=== PATIENT | male | born 1930 | race Caucasian/White ===

== ENCOUNTER 2017-03-05 11:20 | Inpatient (IN) | payer MEDICARE ==
[~2017-03-05] VITALS: Ht 172.7 cm; Wt 71.8 kg
[2017-03-05] VITALS (11 sets, daily range): BP systolic 94–133; BP diastolic 65–74; PULSE 85–110; RESP 20–38; TEMP 97.4–98.1; O2SAT 91–98
[~2017-03-05 11:20] MED LIST: ASPI81 PO; BENA5TAB PO
[2017-03-05] MEDS ORDERED: RESP: ALBUTEROL 2.5 MG/IPRATROPIUM 0.5 MG NEB (SCH) NEB ONE (11:30)
[2017-03-05] MEDS ORDERED: methylPREDNISolone SOD SUCC 125 MG/2 ML VIAL IV PUSH ONE (11:30)
[2017-03-05] MEDS ORDERED: SODIUM CHLORIDE 0.9% FLUSH 10 ML FLUSH IVF PRN (11:30)
--- NOTE | 2017-03-05 11:43 | PD ---
HPI Chief Complaint: Respiratory Distress Time Seen by Provider: 11:22 Travel History International Travel<30 days: No Contact w/Intl Traveler<30days: No Traveled to known affect area: No History of Present Illness HPI This is a 87-year-old male patient with a past medical history of COPD and was just diagnosed last year per resents with a complaint of shortness of breath of 2 days' duration. Patient notes a dry cough and denies fever and chills. He states his states his chest felt tight but denies nausea vomiting sweating and lightheadedness dizziness. PFSH Past Medical History AAA: Yes Heart Rhythm Problems: No Cardiac Catheterization: No Cardiovascular Problems: No High Cholesterol: No Congestive Heart Failure: No Diabetes: No Diminished Hearing: No Hypertension: Yes Tetanus Vaccination: Unknown Influenza Vaccination: Yes Past Surgical History Coronary Artery Bypass Graft: No Other Surgery: Yes (Bilateral hernia repair 15 years ago. Right leg surgery.) Social History Alcohol Use: No Tobacco Use: No Substance Use: No Allergies-Medications (Allergen,Severity, Reaction): Coded Allergies: No Known Allergies (Verified , 03/05/17) Reported Meds & Prescriptions Reported Meds & Active Scripts Active Reported Benazepril (Benazepril HCl) 5 Mg Tab 5 Mg PO DAILY Aspirin 81 Mg Chew 81 Mg CHEW DAILY Review of Systems ROS Limitations: Clinical Condition General / Constitutional: No: Fever, Chills, Weight Gain, Weight Loss, Other Eyes: No: Diploplia, Blurred Vision, Photophobia, Drainage, Redness, Foreign Body Sensation, Pain, Tearing, Blind Spots, Visual changes, Blindness, Other HENT: No: Headaches, Vertigo, Lightheadedness, Sore Throat, Rhinitis, Rhinorrhea, Congestion, Nosebleed, Neck Stiffness, Neck Pain, Masses, Gingival Bleeding, Dental Difficulties, Ear Discharge, Earache, Other Cardiovascular: Positive: Other (chest tightness), No: Chest Pain or Discomfort, Palpitations, Irregular Rhythm, Tachycardia, Diaphoresis, Syncope, Dyspnea on exertion, Varicosities, Edema, Cyanosis, Varicosities, Phlebitis, Claudication Respiratory: Positive: Cough, Shortness of Breath, No: Wheezing, Sneezing, Orthopnea, Hemoptysis, Stridor, Night Sweats, Pleuritic Pain, Other Gastrointestinal: No: Nausea, Vomiting, Diarrhea, Abdominal Pain, Hematemesis, Hematochezia, Constipation, Changes in Bowel Habits, Indigestion, Dysphagia, Loss of Appetite, Other Genitourinary: No: Urgency, Frequency, Dysuria, Nocturia, Hematuria, Decreased Urinary Output, Oliguria, Hesitancy, Dribbling, Incontinence, Pelvic Pain, Flank Pain, Dyspareunia, Discharge, Dysmenorrhea, Menorrhagia, Metorrhagia, Vaginal Bleeding, Other Musculoskeletal: No: Myalgias, Arthralgias, Limited ROM, Weakness, Cramping, Edema, Pain, Atrophy, Other Skin: No Rash, No Itching, No Dryness, No Lumps, No Hives, No Change in Pigmentation, No Change in nails, No Alopecia, No Lesions, No Breast Lumps, No Breast Tenderness, No Breast Swelling, No Other Neurologic: No: Weakness, Dizziness, Syncope, Focal Abnormalities, Coordination Problem, Tremor, Ataxia, Headache, Change in Mentation, Slurred Speech, Paresthesia, Incontinence, Seizures, Sensory Disturbance, Other Psychiatric: No: Anxiety, Depression, Suicidal Ideations, Disorder of Thought, Mood Disorder, Substance Abuse, Homicidal Ideation, Other Endocrine: No: Heat Intolerance, Cold Intolerance, Polyuria, Polydipsia, Other Hematologic/Lymphatic: No: Easy Bruising, Lymph Node Enlargement, Other Physical Exam Exam Limitations: Clinical Condition Narrative GENERAL: Older male patient who presents in severe respiratory distress SKIN: Focused skin assessment warm/dry.no lesions no cyanosis no erythema HEAD: Atraumatic. Normocephalic. EYES: Pupils equal and round and reactive . No scleral icterus. No injection or drainage. ENT: No nasal bleeding or discharge. Mucous membranes pink and moist. NECK: Trachea midline. No JVD. CARDIOVASCULAR: S1-S2 appreciated. Hyperdynamic precordium No murmur appreciated. Pulses normal throughout. RESPIRATORY issue using accessory muscles of respiration active inspiratory and expiratory wheezing in all lung archuleta breath sounds throughout GASTROINTESTINAL: Abdomen soft, non-tender, nondistended. Hepatic and splenic margins not palpable. Bowel sounds normal. No peritoneal signs. MUSCULOSKELETAL: No obvious deformities. No clubbing. No cyanosis. No edema. NEUROLOGICAL: Awake and alert and oriented 3.. No obvious cranial nerve deficits. Motor and sensory exam grossly within normal limits. Normal speech. No meningeal signs. PSYCHIATRIC: Patient anxious insight and judgment normal. No suicidal or homicidal ideation. Data Data Last Documented VS Vital Signs Date Time Temp Pulse Resp B/P Pulse Ox O2 Delivery O2 Flow Rate FiO2 03/05/17 14:19 96 35 03/05/17 13:58 88 102/70 03/05/17 13:16 BiPAP 03/05/17 11:29 38 03/05/17 11:26 98.1 Orders Resp Bipap / Cpap Non Invas Vt (03/05/17 ) Albuterol-Ipratropium Neb (Duoneb Neb) (03/05/17 11:30) Methylprednisolone So Succ Inj (Solumedr (03/05/17 11:30) Electrocardiogram (03/05/17 11:24) Basic Metabolic Panel (Bmp) (03/05/17 11:24) Ckmb (Isoenzyme) Profile (03/05/17 11:24) Complete Blood Count With Diff (03/05/17 11:24) Magnesium (Mg) (03/05/17 11:24) Prothrombin Time / Inr (Pt) (03/05/17 11:24) Act Partial Throm Time (Ptt) (03/05/17 11:24) Troponin I (03/05/17 11:24) Chest, Single Ap (03/05/17 11:24) Ecg Monitoring (03/05/17 11:24) Bilateral Bp Monitoring (03/05/17 11:24) Iv Access Insert/Monitor (03/05/17 11:24) Oximetry (03/05/17 11:24) Oxygen Administration (03/05/17 11:24) Sodium Chloride 0.9% Flush (Ns Flush) (03/05/17 11:30) Sodium Chlor 0.9% 250 Ml Inj (Ns 250 Ml (03/05/17 13:30) Ceftriaxone Inj (Rocephin Inj) (03/05/17 13:30) Azithromycin Inj (Zithromax Inj) (03/05/17 13:30) Aspirin (Aspirin) (03/05/17 13:30) Electrocardiogram (03/05/17 12:18) Admit To Inpatient (03/05/17 ) Vital Signs (Adult) Q4H (03/05/17 15:57) Activity Oob With Assistance (03/05/17 15:57) Diet Heart Healthy (03/05/17 Dinner) Sodium Chloride 0.9% Flush (Ns Flush) (03/05/17 16:00) Sodium Chloride 0.9% Flush (Ns Flush) (03/05/17 21:00) Acetaminophen (Tylenol) (03/05/17 16:00) Ondansetron Inj (Zofran Inj) (03/05/17 16:00) Basic Metabolic Panel (Bmp) (03/06/17 06:00) Complete Blood Count With Diff (03/06/17 06:00) Resp Oxygen Yaya C Titrat 1-4 L (03/05/17 ) Pt Request For Service (03/05/17 15:57) Heparin Inj (Heparin Inj) (03/05/17 17:00) Naloxone Inj (Narcan Inj) (03/05/17 16:00) Docusate Sodium-Senna (Nirali-Colace) (03/05/17 21:00) Magnesium Hydroxide Liq (Milk Of Magnesi (03/05/17 16:00) Sennosides (Senokot) (03/05/17 16:00) Bisacodyl Supp (Dulcolax Supp) (03/05/17 16:00) Lactulose Liq (Lactulose Liq) (03/05/17 16:00) Inpatient Certification (03/05/17 ) Albuterol-Ipratropium Neb (Duoneb Neb) (03/05/17 16:00) Albuterol-Ipratropium Neb (Duoneb Neb) (03/05/17 16:00) Prednisone (Deltasone) (03/05/17 18:00) Levofloxacin (Levaquin) (03/06/17 09:00) Arterial Blood Gas (Abg) (03/05/17 ) Admit Order (Ed Use Only) (03/05/17 16:12) Labs Laboratory Tests Test 03/05/17 03/05/17 11:40 16:08 White Blood Count 12.1 TH/MM3 Red Blood Count 4.87 MIL/MM3 Hemoglobin 14.6 GM/DL Hematocrit 44.0 % Mean Corpuscular Volume 90.4 FL Mean Corpuscular Hemoglobin 30.1 PG Mean Corpuscular Hemoglobin 33.3 % Concent Red Cell Distribution Width 15.7 % Platelet Count 280 TH/MM3 Mean Platelet Volume 7.6 FL Neutrophils (%) (Auto) 80.9 % Lymphocytes (%) (Auto) 8.5 % Monocytes (%) (Auto) 8.8 % Eosinophils (%) (Auto) 1.4 % Basophils (%) (Auto) 0.4 % Neutrophils # (Auto) 9.8 TH/MM3 Lymphocytes # (Auto) 1.0 TH/MM3 Monocytes # (Auto) 1.1 TH/MM3 Eosinophils # (Auto) 0.2 TH/MM3 Basophils # (Auto) 0.0 TH/MM3 CBC Comment AUTO DIFF Differential Total Cells 100 Counted Neutrophils % (Manual) 79 % Band Neutrophils % 6 % Lymphocytes % 8 % Monocytes % 5 % Neutrophils # (Manual) 10.5 TH/MM3 Myelocytes 2 % Nucleated Red Blood Cells 1 /100 WBC Differential Comment FINAL DIFF MANUAL Toxic Vacuolation PRESENT Platelet Estimate NORMAL Platelet Morphology Comment NORMAL Ovalocytes 1+ Prothrombin Time 11.6 SEC Prothromb Time International 1.0 RATIO Ratio Activated Partial 25.7 SEC Thromboplast Time Sodium Level 131 MEQ/L Potassium Level 5.2 MEQ/L Chloride Level 100 MEQ/L Carbon Dioxide Level 21.0 MEQ/L Anion Gap 10 MEQ/L Blood Urea Nitrogen 35 MG/DL Creatinine 1.75 MG/DL Estimat Glomerular Filtration 37 ML/MIN Rate Random Glucose 123 MG/DL Calcium Level 8.9 MG/DL Magnesium Level 2.5 MG/DL Total Creatine Kinase 79 U/L Troponin I 0.21 NG/ML Blood Gas Puncture Site RT RADIAL Blood Gas Patient Temperature 98.6 Blood Gas HCO3 23 mmol/L Blood Gas Base Excess -1.0 mmol/L Blood Gas Oxygen Saturation 91 % Arterial Blood pH 7.45 Arterial Blood Partial 33 mmHg Pressure CO2 Arterial Blood Partial 67 mmHG Pressure O2 Arterial Blood Oxygen Content 18.6 Vol % Arterial Blood 2.1 % Carboxyhemoglobin Arterial Blood Methemoglobin 0.7 % Blood Gas Hemoglobin 14.6 G/DL Oxygen Delivery Device BIPAP Blood Gas Ventilator Setting IPAP 12/EPAP 5 Blood Gas Inspired Oxygen 35 % [facility] Medical Decision Making Medical Screen Exam Complete: Yes Emergency Medical Condition: Yes Medical Record Reviewed: Yes Interpretation(s) EKG right bundle branch block left anterior fascicular block occasional PVC no acute ST segment elevation Chest x-ray shows hyperinflation and bilateral interstitial changes White cell count 21,000 ] Troponin increased to 0.21 however creatinine is also increased to 1.7 range ABG on 35% oxygen and BiPAP pH 7.45 PCO2 32.7 oxygen saturation 67.2 sodium bicarbonate 22.5 oxygen saturation duration 95-96% Differential Diagnosis Differential diagnoses acute respiratory distress COPD exacerbation hypoxemia acute kidney injury causing the elevation in troponin Narrative Course Critical care course this is a 87-year-old male patient with a history of COPD presented in extremis in triage noted to have a oxygen saturation in the 60s he was brought back immediately to room 27 where nonrebreather was placed patient quickly converted to BiPAP and was given a DuoNeb and Solu-Medrol which he responded to well magnesium level was normal EKG showed no ischemic changes however there was right bundle branch block and left anterior fascicular block occasional PVCs but no ST changes troponin elevated 0.21 but creatinine also elevated at 1.7 believes elevated troponin may be related to acute kidney injury Case discussed with Dr. Santiago the patient's intrusion analyst and the plan is to place patient on the telemetry floor and they will be consulted case also discussed with Dr. Tae swift the hospitalist accepted the patient onto the telemetry floor. She is currently on BiPAP ABGs to be performed and oxygen saturation is within normal limits she was awake and alert . Physician Communication Physician Communication Dr. tae Swift Diagnosis Primary Impression: Acute respiratory distress Additional Impressions: COPD exacerbation Leukocytosis leukocytosis Admitting Information Admitting Physician Requests: Admit Condition: Stable Matthew Medina MD Mar 05, 2017 11:43
[2017-03-05 12:18] LABS: AUTOMATED NEUTROPHIL # 9.8 TH/MM3 (1.8-7.7); BASOPHIL % 0.4 % (0.0-2.0); EOSINOPHIL # 0.2 TH/MM3 (0-0.4); EOSINOPHIL % 1.4 % (0.0-4.0); LYMPH % 8.5 % (9.0-44.0); MEAN CELL VOLUME 90.4 FL (80.0-100.0); MEAN CORPUSCULAR HEMOGLOBIN 30.1 PG (27.0-34.0); MEAN CORPUSCULAR HGB CONC 33.3 % (32.0-36.0); MONO % 8.8 % (0.0-8.0); NEUT % 80.9 % (16.0-70.0); PLATELET COUNT 280 TH/MM3 (150-450); RED BLOOD COUNT 4.87 MIL/MM3 (4.50-5.90); RED CELL DISTRIBUTION WIDTH 15.7 % (11.6-17.2); WHITE BLOOD COUNT 12.1 TH/MM3 (4.0-11.0)
[2017-03-05 12:21] LABS: HEMO FLAGS AUTO DIFF
[2017-03-05 12:33] LABS: APTT (PATIENT) 25.7 SEC (24.3-30.1); PROTHROMBIN TIME - PATIENT 11.6 SEC (9.8-11.6)
[2017-03-05 12:38] LABS: MAGNESIUM 2.5 MG/DL (1.5-2.5); POTASSIUM 5.2 MEQ/L (3.5-5.1)
--- NOTE | 2017-03-05 12:49 | RADRPT ---
EXAM DATE/TIME: 03/05/2017 11:40 [place] COMPARISON: CHEST PA & LAT, August 13, 2011, 14:10. INDICATIONS : Dyspnea. MEDICAL HISTORY : Chronic obstructive pulmonary disease. SURGICAL HISTORY : None. ENCOUNTER: Initial ACUITY: 1 day PAIN SCORE: 0/10 LOCATION: Bilateral chest FINDINGS: The exam demonstrates a band COPD changes. There are extensive emphysematous changes in the lung apic es. There is interstitial fibrotic change in both lower lobes. The amount of interstitial prominence in the lung bases appears increased when compared to previous dated 08/13/11. The heart is normal in size. There is no pleural effusion. The mediastinal contours are within normal limits. The bony struc tures demonstrate a probable old fracture of the distal left clavicle but are otherwise intact. CONCLUSION: 1. Severe COPD changes and interstitial fibrotic change. Kevon Mahoney MD on March 05, 2017 at 12:46 Board Certified Radiologist. This report was verified electronically.
[2017-03-05 12:56] LABS: BANDS 6 % (0-6); CORRECTED NUCLEATED RBC 1 /100 WBC (0-0); MYELOCYTES 2 % (0-0); NEUTROPHIL # MANUAL DIFF 10.5 TH/MM3 (1.8-7.7); POLYS (SEG NEUTROPHILS) 79 % (16-70); WBC DIFF SAMPLE 100
[2017-03-05 12:57] LABS: OVALOCYTES 1+ (NORMAL); TOXIC VACUOLATION PRESENT (NONE SEEN)
[2017-03-05 12:58] LABS: PLATELET ESTIMATE SMEAR NORMAL (NORMAL); PLATELET MORPHOLOGY NORMAL (NORMAL); SCAN/DIFF FINAL DIFF MANUAL
[2017-03-05] MEDS ORDERED: ASPI81CH CHEW (13:16)
[2017-03-05] MEDS ORDERED: BENA5TAB PO (13:16)
[2017-03-05] MEDS ORDERED: SODIUM CHLOR 0.9% 250 ML INJ 250 ML IV ONE (13:30)
[2017-03-05] MEDS ORDERED: AZITHROMYCIN INJ 500 MG in SODIUM CHLOR 0.9% 250 ML INJ 250 ML IV ONE (13:30)
[2017-03-05] MEDS ORDERED: ASPIRIN 325 MG TAB PO ONE (13:30)
[2017-03-05] MEDS ORDERED: cefTRIAXone INJ 1,000 MG in SODIUM CHLORIDE 0.9% INJ 100 ML IV ONE (13:30)
[2017-03-05] MEDS ORDERED: SODIUM CHLORIDE 0.9% FLUSH 10 ML FLUSH IV FLUSH PRN (16:00)
[2017-03-05] MEDS ORDERED: ONDANSETRON HCL 4 MG/2 ML VIAL IVP PRN (16:00)
[2017-03-05] MEDS ORDERED: NALOXONE HCL 0.4 MG/ML AMP IV PRN (16:00)
[2017-03-05] MEDS ORDERED: RESP: ALBUTEROL 2.5 MG/IPRATROPIUM 0.5 MG NEB (PRN) NEB (16:00)
[2017-03-05] MEDS ORDERED: SENNOSIDES 8.6 MG TAB PO PRN (16:00)
[2017-03-05] MEDS ORDERED: LACTULOSE SYRUP 20 GM/30 ML CUP PO PRN (16:00)
[2017-03-05] MEDS ORDERED: ACETAMINOPHEN 325 MG TAB PO PRN (16:00)
[2017-03-05] MEDS ORDERED: BISACODYL 10 MG SUPP RECTAL PRN (16:00)
[2017-03-05] MEDS ORDERED: MAGNESIUM HYDROXIDE SUSP 30 ML CUP PO PRN (16:00)
--- NOTE | 2017-03-05 16:03 | HHI.HP ---
HPI Service [facility] Primary Care Physician Unknown Admission Diagnosis Diagnoses: Chief Complaint: Shortness of breath Travel History International Travel<30 Days: No Contact w/Intl Traveler <30 Da: No Traveled to Known Affected Are: No History of Present Illness Mr. Jackman is a pleasant 87-year-old male with a history of COPD who presents to the emergency department due to shortness of breath that started 2 days ago. He reports some chest tightness. Denies nausea vomiting, lightheadedness or dizziness. He had dry cough without any fever, chills. Denies any changes in bowel or bladder habits. No dysuria, hematuria. At the time of this interview, patient was on BiPAP started in the ED. His ABG showed 7.45/33/67 on 35% O2 indicating patient's problem with oxygenation and not so much problem with ventilation. We stopped BiPAP during this interview and started patient on O2 via nasal cannula. He is requiring 4L of O2 to maintain O2 sat 88-90%. Patient feels much more comfortable with Nasal Cannula. Review of Systems Except as stated in HPI: all other systems reviewed are Neg Past Family Social History Past Medical History COPD, HTN Past Surgical History Bilateral hernia repair, right leg surgery. Reported Medications Benazepril (Benazepril HCl) 5 Mg Tab 5 Mg PO DAILY Aspirin 81 Mg Chew 81 Mg CHEW DAILY Allergies: Coded Allergies: No Known Allergies (Verified , 03/05/17) Family History No family history of Alzheimer's or Parkinson's. Social History Denies using tobacco, alcohol, illicit drugs. Physical Exam Vital Signs Vital Signs Date Time Temp Pulse Resp B/P Pulse Ox O2 Delivery O2 Flow Rate FiO2 03/05/17 14:19 96 35 03/05/17 13:58 88 102/70 03/05/17 13:16 85 94/65 95 BiPAP 40 03/05/17 11:29 38 97 BiPAP 45 03/05/17 11:29 98 03/05/17 11:29 98 BiPAP 03/05/17 11:26 98.1 88 38 124/71 97 03/05/17 11:25 97 45 03/05/17 11:25 97 BiPAP 45 Physical Exam GENERAL: This is a well-nourished, well-developed patient, in no apparent distress. SKIN: No rashes, ecchymoses or lesions. Warm and dry. HEAD: Atraumatic. Normocephalic. No temporal or scalp tenderness. EYES: Pupils equal round and reactive. No injection or drainage. ENT: Nose without bleeding, purulent drainage or septal hematoma. Airway patent. NECK: Trachea midline. No lymphadenopathy. Supple, nontender, no meningeal signs. CARDIOVASCULAR: Regular rate and rhythm without murmurs, gallops, or rubs. No JVD. RESPIRATORY: Moderate air entry, diffuse velcro like crackles in the lower lung archuleta. GASTROINTESTINAL: Abdomen soft, non-tender, nondistended. No guarding. MUSCULOSKELETAL: Extremities without clubbing, cyanosis, or edema. NEUROLOGICAL: Awake and alert. Cranial nerves II through XII intact. No focal neurological deficits. Normal speech. Laboratory Laboratory Tests Test 03/05/17 11:40 White Blood Count 12.1 Red Blood Count 4.87 Hemoglobin 14.6 Hematocrit 44.0 Mean Corpuscular Volume 90.4 Mean Corpuscular Hemoglobin 30.1 Mean Corpuscular Hemoglobin 33.3 Concent Red Cell Distribution Width 15.7 Platelet Count 280 Mean Platelet Volume 7.6 Neutrophils (%) (Auto) 80.9 Lymphocytes (%) (Auto) 8.5 Monocytes (%) (Auto) 8.8 Eosinophils (%) (Auto) 1.4 Basophils (%) (Auto) 0.4 Neutrophils # (Auto) 9.8 Lymphocytes # (Auto) 1.0 Monocytes # (Auto) 1.1 Eosinophils # (Auto) 0.2 Basophils # (Auto) 0.0 CBC Comment AUTO DIFF Differential Total Cells 100 Counted Neutrophils % (Manual) 79 Band Neutrophils % 6 Lymphocytes % 8 Monocytes % 5 Neutrophils # (Manual) 10.5 Myelocytes 2 Nucleated Red Blood Cells 1 Differential Comment FINAL DIFF MANUAL Toxic Vacuolation PRESENT Platelet Estimate NORMAL Platelet Morphology Comment NORMAL Ovalocytes 1+ Prothrombin Time 11.6 Prothromb Time International 1.0 Ratio Activated Partial 25.7 Thromboplast Time Sodium Level 131 Potassium Level 5.2 Chloride Level 100 Carbon Dioxide Level 21.0 Anion Gap 10 Blood Urea Nitrogen 35 Creatinine 1.75 Estimat Glomerular Filtration 37 Rate Random Glucose 123 Calcium Level 8.9 Magnesium Level 2.5 Total Creatine Kinase 79 Troponin I 0.21 Result Diagram: 03/05/17 1140 03/05/17 1140 Imaging Last Impressions Chest X-Ray 03/05/17 1124 Signed Impressions: Service Date/Time: Sunday, March 05, 2017 11:40 - CONCLUSION: 1. Severe COPD changes and interstitial fibrotic change. Kevon Mahoney MD Assessment and Plan Problem List: (1) COPD exacerbation ICD Code: J44.1 Status: Acute (2) Pulmonary interstitial fibrosis ICD Code: J84.10 Status: Acute (3) Hypertension ICD Code: I10 Status: Acute Assessment and Plan Mr. Jackman is a pleasant 87 year old male with a history of COPD who presents to the ED with shortness of breath that started two days prior to this admission. Patient reports dry cough and no fever, chills. - Acute respiratory failure - hypoxia. - COPD exacerbation - Pulmonary interstitial fibrosis - CXR reviewed by me on 03/05/2017 - shows bilateral lower lung pulmonary fibrosis. - O2 sat is in the low 80s on 2L of O2, measured at bedside. - Continue O2 via NC to keep O2 sat > 88%. Currently patient is requiring 4L - Continue DuoNeb scheduled and PRN - Continue Prednisone 20mg TID. - Continue Levofloxacin 750mg [id number]. Patient received Azithromycin and Ceftriaxone in the ED. - Hypertension - Patient takes Benazepril at home. Will hold of using BETY inhibitor for now. - Acute kidney injury - Mild hyperkalemia K 5.2 - Mild hyponatremia Na 131 - Possibly pre-renal. Will start patient on gentle hydration with NS. - BMP, CBC in the AM. Full code. Heparin SQ. Physician Certification 2 Midnight Certification Type: Admission for Inpatient Services Order for Inpatient Services The services are ordered in accordance with Medicare regulations or non- Medicare payer requirements, as applicable. In the case of services not specified as inpatient-only, they are appropriately provided as inpatient services in accordance with the 2-midnight benchmark. Estimated LOS (days): 2 days is the estimated time the patient will need to remain in the hospital, assuming treatment plan goals are met and no additional complications. Post-Hospital Plan: Home Karma Swift DO Mar 05, 2017 16:03
--- NOTE | 2017-03-05 16:12 | EKG ---
Date Performed: 03/05/2017 Time Performed: 12:18:11 PTAGE: 87 years EKG: Sinus rhythm PACS RIGHT BUNDLE BRANCH BLOCK LEFT POSTERIOR FASCICULAR BLOCK ABNORMAL ECG PREVIOUS TRACING : 03/05/2017 11.30 Compared to prior tracing no significant change DOCTOR: Roselyn Raymond Interpretating Date/Time 03/05/2017 16:11:20
--- NOTE | 2017-03-05 16:16 | EKG ---
Date Performed: 03/05/2017 Time Performed: 11:30:17 PTAGE: 87 years EKG: Sinus rhythm WITH FREQUENT SUPRAVENTRICULAR PREMATURE COMPLEXES RIGHT BUNDLE BRANCH BLOCK LEFT POSTERIOR FASCICUL AR BLOCK ABNORMAL ECG Compared to prior tracing no significant change DOCTOR: Roselyn Raymond Interpretating Date/Time 03/05/2017 16:15:00
[2017-03-05 16:19] LABS: BLOOD GAS CARBOXYHEMOGLOBIN 2.1 % (0-4); BLOOD GAS HCO3 23 mmol/L (22-26); BLOOD GAS METHEMOGLOBIN 0.7 % (0-2); BLOOD GAS O2 HGB SATURATION 91 % (90-100); BLOOD GAS OXYGEN CONTENT 18.6 Vol % (12.0-20.0); BLOOD GAS PCO2 33 mmHg (38-42); BLOOD GAS PO2 67 mmHG (61-120); BLOOD GAS TOTAL HGB 14.6 G/DL (12.0-16.0); CRITICAL VALUE NO; DRAW SITE RT RADIAL; FIO2 35 %; NUMBER OF ARTERIAL PUNCTURES 1; OXYGEN DEVICE BIPAP; STAT YES; TEMP CORR TO 98.6; ULNAR PULSE PRESENT; VENT SETTINGS IPAP 12/EPAP 5
[2017-03-05] MEDS: RESP: ALBUTEROL 2.5 MG/IPRATROPIUM 0.5 MG NEB (SCH) NEB ×2 (16:26→19:00)
[2017-03-05] MEDS: HEPARIN SODIUM - SQ 10,000 UNITS/ML VIAL SQ SCH (18:09)
[2017-03-05] MEDS: predniSONE 20 MG TAB PO SCH (18:09)
[2017-03-05] MEDS: DOCUSATE SODIUM 50 MG/SENNA 8.6 MG TAB PO SCH (20:22)
[2017-03-05] MEDS: SODIUM CHLORIDE 0.9% FLUSH 10 ML FLUSH IV FLUSH SCH (20:24)
[2017-03-06] VITALS (7 sets, daily range): BP systolic 98–164; BP diastolic 55–70; PULSE 80–105; RESP 18–20; TEMP 97.3–98; O2SAT 90–94
[2017-03-06] MEDS ORDERED: SODIUM CHLOR 0.9% 1000 ML INJ 1,000 ML IV SCH (01:00)
[2017-03-06] MEDS: HEPARIN SODIUM - SQ 10,000 UNITS/ML VIAL SQ SCH ×2 (04:26→17:00)
[2017-03-06] MEDS: RESP: ALBUTEROL 2.5 MG/IPRATROPIUM 0.5 MG NEB (SCH) NEB ×5 (07:52→19:53)
[2017-03-06] MEDS: predniSONE 20 MG TAB PO SCH ×2 (09:11→14:32)
[2017-03-06] MEDS: DOCUSATE SODIUM 50 MG/SENNA 8.6 MG TAB PO SCH ×2 (09:11→21:00)
[2017-03-06] MEDS: LEVOFLOXACIN 750 MG TAB PO SCH (09:12)
[2017-03-06] MEDS: ASPIRIN 81 MG CHEW TAB CHEW SCH (09:12)
[2017-03-06] MEDS: SODIUM CHLORIDE 0.9% FLUSH 10 ML FLUSH IV FLUSH SCH ×2 (09:14→21:24)
[2017-03-06 10:05] LABS: AUTOMATED NEUTROPHIL # 9.5 TH/MM3 (1.8-7.7); BASOPHIL % 0.1 % (0.0-2.0); EOSINOPHIL % 0.1 % (0.0-4.0); HEMATOCRIT 42.8 % (39.0-51.0); LYMPH % 9.2 % (9.0-44.0); LYMPHOCYTE # 1.1 TH/MM3 (1.0-4.8); MEAN CELL VOLUME 90.5 FL (80.0-100.0); MEAN CORPUSCULAR HEMOGLOBIN 29.8 PG (27.0-34.0); MONO % 8.8 % (0.0-8.0); NEUT % 81.8 % (16.0-70.0); PLATELET COUNT 280 TH/MM3 (150-450); RED BLOOD COUNT 4.73 MIL/MM3 (4.50-5.90); RED CELL DISTRIBUTION WIDTH 15.7 % (11.6-17.2); WHITE BLOOD COUNT 11.6 TH/MM3 (4.0-11.0)
[2017-03-06 10:10] LABS: HEMO FLAGS AUTO DIFF
[2017-03-06 10:32] LABS: BICARBONATE 24.4 MEQ/L (21.0-32.0); POTASSIUM 4.7 MEQ/L (3.5-5.1)
[2017-03-06 10:45] LABS: BANDS 16 % (0-6); METAMYELOCYTES 1 % (0-1); MYELOCYTES 3 % (0-0); NEUTROPHIL # MANUAL DIFF 10.1 TH/MM3 (1.8-7.7); POLYS (SEG NEUTROPHILS) 67 % (16-70); WBC DIFF SAMPLE 100
[2017-03-06 10:46] LABS: ACANTHOCYTES OCC (NORMAL); OVALOCYTES 1+ (NORMAL); PLATELET ESTIMATE SMEAR NORMAL (NORMAL); PLATELET MORPHOLOGY NORMAL (NORMAL); SCAN/DIFF FINAL DIFF MANUAL; TOXIC GRANULATION 1+ (NORMAL)
[2017-03-06] MEDS ORDERED: methylPREDNISolone SOD SUCC 40 MG/1 ML VIAL IV PUSH ONE (14:45)
--- NOTE | 2017-03-06 14:49 | HHI.PR ---
Subjective Remarks Pt states SOB is improved and wants to go home today. He is still SOB but states that I could send a prescription to his pharmacy and he can continue treatment at home. He cannot remember who his binding end stitcher is. He called his and had me talk to her over the phone. not comfortable taking him home as she worries that he will come back to hospital. I explained to her that pt at this time requires 4L oxygen and I'm not comfortable sending him out however he is insisting that he be discharged. When I asked pt further, he admits that he has anxiety staying in the hospital. tells me that his binding end stitcher is Dr. Hoffman Objective Vitals Vital Signs Date Time Temp Pulse Resp B/P Pulse Ox O2 Delivery O2 Flow Rate FiO2 03/06/17 12:00 97.3 93 18 108/62 92 03/06/17 08:00 97.9 85 18 109/63 94 03/06/17 07:55 Nasal Cannula 4.00 03/06/17 04:00 97.6 80 20 98/55 92 03/06/17 00:00 97.6 87 20 98/57 90 03/05/17 20:32 105 03/05/17 20:15 97.4 110 22 133/74 92 03/05/17 19:37 86 20 125/68 96 BiPAP 03/05/17 19:00 94 35 03/05/17 18:03 90 24 133/65 91 Nasal Cannula 5 I/O 03/05/17 03/05/17 03/05/17 03/06/17 03/06/17 03/06/17 07:00 15:00 23:00 07:00 15:00 23:00 Intake Total 75 ml 698 ml Output Total 200 ml 400 ml Balance -125 ml 298 ml Intake Oral 75 ml 360 ml IV Total 338 ml Output Urine Total 200 ml 400 ml # Bowel Movements 0 0 Result Diagram: 03/06/17 0800 03/06/17 0800 Imaging Last Impressions Chest X-Ray 03/05/17 1124 Signed Impressions: Service Date/Time: Sunday, March 05, 2017 11:40 - CONCLUSION: 1. Severe COPD changes and interstitial fibrotic change. Kevon Mahoney MD Objective Remarks GENERAL: This is a well-nourished, well-developed patient, in no apparent distress. SKIN: No rashes, ecchymoses or lesions. Warm and dry. HEAD: Atraumatic. Normocephalic. EYES: EOMI ENT: Nose without bleeding. Airway patent. NECK: Trachea midline CARDIOVASCULAR: Regular rate and rhythm without murmurs RESPIRATORY: Moderate air entry, using accessory muscles, scattered expiratory wheezing noted. GASTROINTESTINAL: Abdomen soft, non-tender, nondistended. No guarding. MUSCULOSKELETAL: Extremities without edema. NEUROLOGICAL: Awake and alert. Cranial nerves II through XII intact. No focal neurological deficits. Normal speech. A/P Problem List: (1) COPD exacerbation ICD Code: J44.1 Status: Acute (2) Pulmonary interstitial fibrosis ICD Code: J84.10 Status: Acute (3) Hypertension ICD Code: I10 Status: Acute Assessment and Plan Mr. Jackman is a pleasant 87 year old male with a history of COPD who presents to the ED with shortness of breath that started two days prior to this admission. Patient reports dry cough and no fever, chills. - Acute respiratory failure - hypoxia. - severe COPD exacerbation currently requiring 4L NC. - Pulmonary interstitial fibrosis - CXR reviewed by me on 03/06/2017 - shows bilateral lower lung pulmonary fibrosis. - Continue O2 via NC to keep O2 sat between 89-92%. Currently patient is requiring 4L - Continue DuoNeb scheduled and PRN. RN to encourage pt to do breathing treatments. added IS q1 hour while awake. - switch to solu-medrol IV q12 hours, 40mg and will give a dose now. - Continue Levofloxacin 750mg [id number]. Patient received Azithromycin and Ceftriaxone in the ED. - Hypertension - Patient takes Benazepril at home. Will hold of using BETY inhibitor for now due to low normal BP's. - Acute kidney injury. Cr was 1.75 and now down to 1.28. s/p gentle hydration. d /c NS - Mild hyperkalemia K 5.2 now resolved. - Mild hyponatremia Na 131 now back to 136, resolved. Anxiety: pt doesn't want to remain in hospital but is agreeable after I had an extensive conversation with him about his condition and after my conversation w his . He admits that he is very anxious here. will start him on low dose ativan prn. Per hx, pt tells me that his SOB was sudden two days ago after going fishing. Will check D-Dimer, if elevated get CTA chest to r/o out PE. >35mins spent talking to patient, over the phone, counseling and coordination of care Full code. Heparin SQ. Discharge Planning d-dimer pending, switched to IV solumedrol. wean oxygen Tatyana May MD Mar 06, 2017 14:49
[2017-03-06] MEDS ORDERED: LORazepam 0.5 MG TAB PO ONE (15:00)
[2017-03-06] MEDS ORDERED: LORazepam 0.5 MG TAB PO PRN (15:00)
[2017-03-06] MEDS ORDERED: IOHEXOL 350 MG/ML 10 ML VIAL (for RAD DIAG) IV ONE (19:52)
--- NOTE | 2017-03-06 20:03 | RADRPT ---
EXAM DATE/TIME: 03/06/2017 19:44 [place] COMPARISON: CTA CHEST W 3D RECON, August 14, 2011, 9:53. INDICATIONS : Shortness of breath and hypoxia. Evaluate for embolism IV CONTRAST: 75 cc Omnipaque 350 (iohexol) IV RADIATION DOSE: 23.19 CTDIvol (mGy) MEDICAL HISTORY : Hypertension. Aneurysm, abdominal. Chronic obstructive pulmonary disease. SURGICAL HISTORY : None. ENCOUNTER: Initial ACUITY: 1 day PAIN SCALE: 0/10 LOCATION: Bilateral chest TECHNIQUE: Volumetric scanning of the chest was performed using a pulmonary embolism protocol MIP images were re constructed. Using automated exposure control and adjustment of the mA and/or kV according to patien t size, radiation dose was kept as low as reasonably achievable to obtain optimal diagnostic quality images. DICOM format image data is available electronically for review and comparison. Follow-up recommendations for incidentally detected pulmonary nodules are based at a minimum on nodul e size and patient risk factors according to Fleischner Society Guidelines. FINDINGS: Extensive COPD is seen bilaterally with large blebs and areas of scarring in the right upper darci g extending to the pleural surfaces and right lower lung laterally. There is slight hazy opacity invo lving both lungs diffusely may represent superimposed inflammatory change. There is no evidence for P E for technique. CONCLUSION: Extensive COPD progressed since 2010 with areas of scarring in the right lung not present previously and haziness to both lungs diffusely as above. Grisel Cho MD on March 06, 2017 at 19:58 Board Certified Radiologist. This report was verified electronically.
[2017-03-06] MEDS ORDERED: SODIUM CHLORID 0.9% 500 ML INJ 500 ML IV SCH (21:15)
[2017-03-06] MEDS: methylPREDNISolone SOD SUCC 40 MG/1 ML VIAL IV PUSH SCH (21:24)
[2017-03-07] VITALS (8 sets, daily range): BP systolic 117–154; BP diastolic 61–82; PULSE 79–93; RESP 18–22; TEMP 97–98.3; O2SAT 88–97
[2017-03-07] MEDS: HEPARIN SODIUM - SQ 10,000 UNITS/ML VIAL SQ SCH ×2 (05:39→17:59)
[2017-03-07 08:26] LABS: BICARBONATE 25.3 MEQ/L (21.0-32.0); POTASSIUM 4.5 MEQ/L (3.5-5.1)
[2017-03-07] MEDS: RESP: ALBUTEROL 2.5 MG/IPRATROPIUM 0.5 MG NEB (SCH) NEB ×4 (08:41→19:18)
[2017-03-07] MEDS: DOCUSATE SODIUM 50 MG/SENNA 8.6 MG TAB PO SCH ×2 (09:24→21:21)
[2017-03-07] MEDS: ASPIRIN 81 MG CHEW TAB CHEW SCH (09:24)
[2017-03-07] MEDS: methylPREDNISolone SOD SUCC 40 MG/1 ML VIAL IV PUSH SCH ×2 (09:25→17:57)
[2017-03-07] MEDS: SODIUM CHLORIDE 0.9% FLUSH 10 ML FLUSH IV FLUSH SCH ×2 (09:26→21:16)
[2017-03-07 12:35] LABS: BLOOD GAS BASE EXCESS -0.7 mmol/L (-2-2); BLOOD GAS CARBOXYHEMOGLOBIN 1.6 % (0-4); BLOOD GAS HCO3 23 mmol/L (22-26); BLOOD GAS METHEMOGLOBIN 0.8 % (0-2); BLOOD GAS O2 HGB SATURATION 93 % (90-100); BLOOD GAS OXYGEN CONTENT 16.9 Vol % (12.0-20.0); BLOOD GAS PCO2 36 mmHg (38-42); BLOOD GAS PO2 79 mmHg (61-120); BLOOD GAS TOTAL HGB 12.9 G/DL (12.0-16.0); TEMP CORR TO 98.6
[2017-03-07 12:36] LABS: CRITICAL VALUE NO
[2017-03-07 12:37] LABS: DRAW SITE RT BRACHIAL; LITER FLOW 2 L/M; NUMBER OF ARTERIAL PUNCTURES 2; OXYGEN DEVICE NASAL CANNULA; STAT NO; ULNAR PULSE PRESENT
--- NOTE | 2017-03-07 13:02 | HHI.PR ---
Subjective Remarks Pt evaluated around 11:30 He tells me that his SOB is improved but is still SOB breath, notes that he looks tired. when asked why he didn't accept the breathing treatments he tells me that he doesn't like them and are not good for him, he insists on taking his "clicker, which apparently is an inhaler he takes and was told that this was better for him but he cannot remember name. He would like to go home soon. at bedside, concerned about pt's breathing. Discussed w RN, this morning sats were 82 on RA. apparently used biPAP last night. At bedside on 6 L Objective Vitals Vital Signs Date Time Temp Pulse Resp B/P Pulse Ox O2 Delivery O2 Flow Rate FiO2 03/07/17 08:43 88 Nasal Cannula 4.00 03/07/17 08:00 97.0 90 22 154/82 94 03/07/17 04:00 97.6 81 20 117/62 96 03/07/17 00:03 97.3 88 20 120/61 94 03/07/17 00:00 Bi-Pap 03/06/17 20:27 94 35 03/06/17 20:00 Nasal Cannula 4.00 03/06/17 20:00 97.4 102 20 103/59 93 03/06/17 20:00 105 03/06/17 16:00 98.0 92 18 164/70 91 I/O 03/06/17 03/06/17 03/06/17 03/07/17 03/07/17 03/07/17 07:00 15:00 23:00 07:00 15:00 23:00 Intake Total 698 ml 720 ml 240 ml 368 ml Output Total 400 ml 500 ml 525 ml Balance 298 ml 220 ml -285 ml 368 ml Intake Oral 360 ml 720 ml 240 ml 0 ml IV Total 338 ml 368 ml Output Urine Total 400 ml 500 ml 525 ml # Voids 1 # Bowel Movements 0 0 0 Result Diagram: 03/06/17 0800 03/07/17 [address] Angiography 03/06/17 0000 Signed Impressions: Service Date/Time: February 19:44 - CONCLUSION: Extensive COPD progressed since 2010 with areas of scarring in the right lung not present previously and haziness to both lungs diffusely as above. Grisel Cho MD Chest X-Ray 03/05/17 1124 Signed Impressions: Service Date/Time: Sunday, March 05, 2017 11:40 - CONCLUSION: 1. Severe COPD changes and interstitial fibrotic change. Kevon Mahoney MD Objective Remarks GENERAL: This is a well-nourished, well-developed patient, appears a little bit more comfortable this morning but having pursed lips. SKIN: No rashes, ecchymoses or lesions. Warm and dry. HEAD: Atraumatic. Normocephalic. EYES: EOMI ENT: Nose without bleeding. Airway patent. NECK: Trachea midline CARDIOVASCULAR: Regular rate and rhythm without murmurs RESPIRATORY: Moderate air entry, using some accessory muscles but less compared to yesterday, scattered expiratory wheezing noted. GASTROINTESTINAL: Abdomen soft, non-tender, nondistended. No guarding. MUSCULOSKELETAL: Extremities without edema. NEUROLOGICAL: Awake and alert. Cranial nerves II through XII intact. No focal neurological deficits. Normal speech. A/P Problem List: (1) COPD exacerbation ICD Code: J44.1 Status: Acute (2) Pulmonary interstitial fibrosis ICD Code: J84.10 Status: Acute (3) Hypertension ICD Code: I10 Status: Acute Assessment and Plan Mr. Jackman is a pleasant 87 year old male with a history of COPD who presents to the ED with shortness of breath that started two days prior to this admission. Patient reports dry cough and no fever, chills. - Acute respiratory failure - hypoxia. - severe COPD exacerbation currently requiring 4L NC. - Pulmonary interstitial fibrosis - CXR reviewed by me on 03/06/2017 - shows bilateral lower lung pulmonary fibrosis. - Continue O2 via NC to keep O2 sat between 89-92%. Currently patient is requiring 4L - Continue DuoNeb scheduled and PRN. RN to encourage pt to do breathing treatments. added IS q1 hour while awake. - on solu-medrol IV q12 hours, will increase to q8hr. monitor. CTA chest showed Extensive COPD progressed since 2010 with areas of scarring in the right lung not present previously and haziness to both lungs diffusely. I have ordered an ABG as pt's sats were 82% on RA this morning, will get a pum consult. Start pt on symbicort. Encouraged pt to get duonebs and explained to him the importance. he is reluctant to use it. - Continue Levofloxacin 750mg [id number]. Patient received Azithromycin and Ceftriaxone in the ED. - Hypertension - Patient takes Benazepril at home. Will hold of using BETY inhibitor for now due to low normal BP's. - Acute kidney injury. Cr was 1.75 and now down to 1.28. s/p gentle hydration. d /c NS - Mild hyperkalemia K 5.2 now resolved. - Mild hyponatremia Na 131 now back to 136, resolved. Anxiety: pt doesn't want to remain in hospital but is agreeable after I had an extensive conversation with him about his condition and after my conversation w his . He admits that he is very anxious here. ativan prn has helped him since I started it.. Per hx, pt tells me that his SOB was sudden two days ago after going fishing. CTA chest neg for PE >35mins spent talking to patient, over the phone, counseling and coordination of care Full code. Heparin SQ. Discharge Planning increased solumedrol dose added symbicort pulm consult in placed. pt most likely will need home oxygen, walk test to be done on day of discharge Tatyana May MD Mar 07, 2017 13:02
--- NOTE | 2017-03-07 16:58 | MB ---
cc: MIAH DOOLEY M.D. DATE OF CONSULTATION 03/07/17 REASON FOR CONSULTATION Hypoxic respiratory failure. Patient with COPD and exacerbation. HISTORY OF PRESENT ILLNESS Mr. Jackman is an 87-year-old male with known history of COPD. Apparently was seen by fly winder as an outpatient. However, he does not know the name admitted with increasing shortness of breath, dry cough. No fever or chills. His arterial blood gas upon presentation on O2 therapy with inspired oxygen fraction at 35% with a pH of 7.45, pCO2 33 and pO2 of 67. The patient remains to be short of breath, however, he is improved at present. Had required oxygen therapy while in the hospital as well as BiPap therapy. PAST MEDICAL HISTORY His past medical history is that of COPD as well as hypertension, previous hernia repair. MEDICATIONS At home: 1. Benazepril. 2. Aspirin. 3. Inhaler. ALLERGIES None known to medication. FAMILY HISTORY Noncontributory. SOCIAL HISTORY Long heavy smoking history, however, stopped smoking several years ago. Does not drink any alcohol. Does not use drugs. REVIEW OF SYSTEMS 12-point review of systems as per HPI and past history, otherwise, negative. PHYSICAL EXAMINATION GENERAL: On exam the patient is alert. VITAL SIGNS: Temperature 97, pulse 90, respiration 20, blood pressure 130/60, O2 sat 95% on 4 liters oxygen nasal cannula. HEENT: Exam unremarkable. Eyes without icterus. NECK: Without adenopathy, thyroid enlargement. CHEST: Increased PA diameter of the chest is noted. Hyperresonant to percussion noted. Decreased breath sounds generally on auscultation. Few scattered rhonchi noted as well. CARDIAC: PMI distant. PMI not appreciated. S1-S2 audible. No murmur or rub. 1/6 ejection systolic murmur left sternal border. ABDOMEN: Lax, bowel sounds audible. EXTREMITIES: No clubbing, cyanosis or edema. SKIN: Normal. No lymphadenopathy. LABORATORY DATA White count 11,000, hemoglobin 14, hematocrit 42, when done on 03/06/2017, platelets 260,000, sodium 137. Potassium 4.5, BUN 38, creatinine 1.2 done this a.m. INR at 1.0. IMAGING STUDIES CT scan of the chest without evidence of pulmonary embolism. Chronic fibrotic change noted. No mass lesion identified. Emphysematous changes noted as well and had worsened over time when compared to previous CAT scan. IMPRESSION 1. COPD and exacerbation. 2. Respiratory failure. PLAN The patient will be maintained on oxygen therapy as needed. Steroid therapy, antibiotic therapy and bronchodilator therapy continued. Will change to oral therapy as soon as the patient is stabilized and will follow his course along with you and depending on progress proceed further. I do thank you for asking me to partake in Mr. Jackman's care. Miah Dooley MD WWW/EO /4:15 PM /4:47 PM
[2017-03-07] MEDS: BUDESONIDE-FORMOTEROL 160/4.5 MCG INHALER INH SCH (21:15)
[2017-03-08] VITALS (8 sets, daily range): BP systolic 111–163; BP diastolic 58–85; PULSE 73–89; RESP 18–20; TEMP 97.3–97.8; O2SAT 92–95
[2017-03-08] MEDS: methylPREDNISolone SOD SUCC 40 MG/1 ML VIAL IV PUSH SCH ×3 (01:30→16:18)
[2017-03-08] MEDS: HEPARIN SODIUM - SQ 10,000 UNITS/ML VIAL SQ SCH ×2 (05:21→16:17)
[2017-03-08] MEDS: RESP: ALBUTEROL 2.5 MG/IPRATROPIUM 0.5 MG NEB (SCH) NEB ×4 (08:00→21:17)
[2017-03-08] MEDS: SODIUM CHLORIDE 0.9% FLUSH 10 ML FLUSH IV FLUSH SCH ×2 (09:14→20:51)
[2017-03-08] MEDS: ASPIRIN 81 MG CHEW TAB CHEW SCH (09:14)
[2017-03-08] MEDS: DOCUSATE SODIUM 50 MG/SENNA 8.6 MG TAB PO SCH ×2 (09:14→20:51)
[2017-03-08] MEDS: LEVOFLOXACIN 750 MG TAB PO SCH (09:14)
--- NOTE | 2017-03-08 11:54 | HHI.PR ---
Subjective Remarks Follow-up dyspnea, COPD. The patient states that he wants to go home today. Denies chest pain. Still gets short of breath with exertion. Objective Vitals Vital Signs Date Time Temp Pulse Resp B/P Pulse Ox O2 Delivery O2 Flow Rate FiO2 03/08/17 08:42 92 Nasal Cannula 4.00 03/08/17 08:01 97.6 80 18 135/70 92 03/08/17 04:00 97.3 78 20 136/66 94 03/08/17 00:00 97.6 73 20 111/58 95 03/07/17 20:00 Nasal Cannula 4.00 03/07/17 20:00 97.5 79 20 127/70 90 03/07/17 20:00 93 03/07/17 16:00 98.3 91 18 149/74 97 03/07/17 15:50 95 Nasal Cannula 4.00 03/07/17 12:00 97.4 90 22 127/63 97 I/O 03/07/17 03/07/17 03/07/17 03/08/17 03/08/17 03/08/17 07:00 15:00 23:00 07:00 15:00 23:00 Intake Total 368 ml 660 ml 240 ml Output Total 1000 ml 700 ml 400 ml Balance 368 ml -340 ml -700 ml -160 ml Intake Oral 0 ml 660 ml 240 ml IV Total 368 ml Output Urine Total 1000 ml 700 ml 400 ml # Voids 1 # Bowel Movements 0 Result Diagram: 03/06/17 0800 03/07/17 [address] Angiography 03/06/17 0000 Signed Impressions: Service Date/Time: February 19:44 - CONCLUSION: Extensive COPD progressed since 2010 with areas of scarring in the right lung not present previously and haziness to both lungs diffusely as above. Grisel Cho MD Chest X-Ray 03/05/17 1124 Signed Impressions: Service Date/Time: Sunday, March 05, 2017 11:40 - CONCLUSION: 1. Severe COPD changes and interstitial fibrotic change. Kevon Mahoney MD Objective Remarks General: Elderly male in no acute distress. Heart: Regular rate and rhythm. No murmur. Lungs: Mild scattered wheeze. No wheezes, rales, or rhonchi. Breathing is nonlabored. Abdomen: Soft, nontender, nondistended. Extremities: No lower extremity edema. Psych: Alert and oriented. Procedures None Urinary Catheter: No Vascular Central Line Catheter: No A/P Problem List: (1) COPD exacerbation ICD Code: J44.1 Status: Acute (2) Pulmonary interstitial fibrosis ICD Code: J84.10 Status: Acute (3) Hypertension ICD Code: I10 Status: Chronic (4) Acute kidney injury ICD Code: N17.9 Status: Acute Assessment and Plan 1. Acute respiratory failure, COPD exacerbation, interstitial fibrosis: Still requiring supplemental oxygen. Appreciate pulmonology recommendations. Continue steroids, bronchodilators, supplemental oxygen, Symbicort, antibiotics. 2. Elevated troponin: Recheck labs. Consult patient's sports leadership instructor, Dr. Santiago. 3. Hypertension: BETY inhibitor held secondary to low blood pressure. 4. Acute kidney injury: Improving. Recheck labs today. 5. Anxiety: Ativan as needed. Much of his anxiety is related to being in the hospital. 6. DVT prophylaxis: Heparin. Discharge Planning Possible discharge home with home health care soon. Check home oxygen walk test. Cardiology evaluation is pending. Labs are pending. Kenneth Ashby MD Mar 08, 2017 11:54
--- NOTE | 2017-03-08 16:01 | HHI.PR ---
Subjective Remarks alert no sob at rest Objective GENERAL: SKIN: Warm and dry. HEAD: Atraumatic. Normocephalic. EYES: Pupils equal and round. No scleral icterus. No injection or drainage. ENT: No nasal bleeding or discharge. Mucous membranes pink and moist. NECK: Trachea midline. No JVD. CARDIOVASCULAR: Regular rate and rhythm. RESPIRATORY: No accessory muscle use. Clear to auscultation. Breath sounds equal bilaterally. GASTROINTESTINAL: Abdomen soft, non-tender, nondistended. Hepatic and splenic margins not palpable. MUSCULOSKELETAL: Extremities without clubbing, cyanosis, or edema. No obvious deformities. NEUROLOGICAL: Awake and alert. No obvious cranial nerve deficits. Motor grossly within normal limits. Five out of 5 muscle strength in the arms and legs. Normal speech. PSYCHIATRIC: Appropriate mood and affect; insight and judgment normal. Vital Signs Date Time Temp Pulse Resp B/P Pulse Ox O2 Delivery O2 Flow Rate FiO2 03/08/17 08:42 92 Nasal Cannula 4.00 03/08/17 08:01 97.6 80 18 135/70 92 03/08/17 04:00 97.3 78 20 136/66 94 03/08/17 00:00 97.6 73 20 111/58 95 03/07/17 20:00 Nasal Cannula 4.00 03/07/17 20:00 97.5 79 20 127/70 90 03/07/17 20:00 93 I/O 03/07/17 03/07/17 03/07/17 03/08/17 03/08/17 03/08/17 07:00 15:00 23:00 07:00 15:00 23:00 Intake Total 368 ml 660 ml 240 ml Output Total 1000 ml 700 ml 400 ml Balance 368 ml -340 ml -700 ml -160 ml Intake Oral 0 ml 660 ml 240 ml IV Total 368 ml Output Urine Total 1000 ml 700 ml 400 ml # Voids 1 # Bowel Movements 0 Result Diagram: 03/06/17 0800 03/07/17 0740 Assessment and Plan Assessment and Plan ass COPD EX.IMPROVED PLAN: INCREASE ACTIVITY HOME AM IF STABLE Miah Dooley MD Mar 08, 2017 16:01
[2017-03-08 19:45] LABS: POTASSIUM 4.6 MEQ/L (3.5-5.1)
[2017-03-08] MEDS: BUDESONIDE-FORMOTEROL 160/4.5 MCG INHALER INH SCH (20:54)
--- NOTE | 2017-03-08 21:33 | MB ---
cc: DEO LANG M.D., HUMAYUN A. M.D. DATE OF CONSULTATION 03/08/[address] Santiago. REASON FOR CONSULTATION Elevated troponin and shortness of breath. HISTORY OF PRESENT ILLNESS Mr. Jackman is a pleasant 87-year-old gentleman with a history of COPD who presented to the emergency room 2 days ago when he was admitted because of exacerbation of COPD with progressive shortness of breath. He did mention that he had some chest tightness to the admitting physician according to the notes. He denies any chest pain with me although he has had "gassy sensations in the past." Denies palpitations, dizziness or syncope. Denies orthopnea, PND or leg swelling. He has had dry cough without fever or chills. He has been treated for COPD exacerbation. He has known abdominal aortic aneurysm followed by Dr. Santiago for that reason. PAST MEDICAL AND SURGICAL HISTORY Includes as mentioned above. History of bilateral hernia repair. Right leg injury and surgery in the past. Hypertension and COPD. Used to smoke but stopped 45 years ago. Denies history of diabetes or family history of coronary artery disease or history of hyperlipidemia. ALLERGIES NO KNOWN DRUG ALLERGIES. FAMILY HISTORY Negative for coronary artery disease, cancer, diabetes, questionable hypertension. REVIEW OF SYSTEMS 12-point system review was unremarkable except for what is mentioned in the history of present illness. MEDICATIONS AT HOME Includes: 1. Benazepril 5 milligrams p.o. daily. 2. Ecotrin 81 milligrams p.o. daily. PHYSICAL EXAMINATION GENERAL: An 87-year-old gentleman lying in bed with mild respiratory distress. Alert and oriented x3, answering questions appropriately. VITAL SIGNS: Blood pressure 145/76 mmHg, pulse of 92 beats per minute and regular, respirations 14 per minute, afebrile. HEENT: Shows head is normocephalic. Pupils are equal and reactive. Throat is within normal limits. NECK: Supple. No jugular venous distension noted. There is faint left carotid bruit noted. No thyromegaly. LUNGS: Exam diminished air entry bilaterally more at the bases with few rhonchi. CARDIOVASCULAR: S1-S2 are normal with a 1-2/6 systolic murmur at the apex, faint S4 gallop.. ABDOMEN: Exam is lax, nontender. Normoactive bowel sounds. No organomegaly. No masses felt. EXTREMITIES: No clubbing, cyanosis. He has trace ankle edema. Pulses 2+ bilaterally. Dorsalis pedis on the left is 1 to 2+, on the right is barely felt. NEUROLOGIC: Grossly intact with no focal deficits. RECTAL: Exam deferred. LABORATORY DATA Shows sodium 137, potassium of 4.6 and BUN of 36, creatinine 1.29. CPK x2 was normal. Troponin-I 0.21 and 0.09. Coags were within normal limits. The CBC when he came showed WBC of 12.1, hemoglobin 14.6 and platelet count of 280. His repeat white count was 11.6. D-dimer on the was 1.33. He had a CTA only mentioning scarring of the right lung with diffuse haziness in both lungs, extensive COPD with scarring and cough and then there is mentioning that there is no evidence for PE. EKG showed sinus rhythm with right bundle-branch block and left posterior hemiblock with nonspecific T-wave changes more evident in the inferior leads, not significantly changed compared to prior tracing. Telemetry strip shows frequent bouts of sinus tachycardia and PSVT. ASSESSMENT/RECOMMENDATIONS Elevated troponin with possible history of chest tightness. He denies any chest pain at the present time. His EKG does not show dynamic ST-T wave changes. However, he is 87-year-old and there is possible some degree of peripheral vascular disease. He is anxious and wants to go home and I feel this is affecting his response towards symptoms. With his shortness of breath and elevated troponin a BNP will be ordered on the labs that were drawn and address as indicated. I did explain to him that it would be a good idea to get an echocardiogram and ischemia evaluation prior to his discharge. However, he does not want any further studies and indicates that "if the Lord wants me then I am ready for it." He understands the risks of possible progression of ischemia that can lead to a cardiac event that can endanger his life and willing to take that risk. I would have preferred that he would stay until Dr. Santiago comes on Friday where he would be feeling comfortable with Dr. Santiago's decisions and workup. A lipid panel fasting will be checked as well in the morning. With his tachycardia and PSVT he will be started on low-dose Cardizem at 120 milligrams daily. History of abdominal aortic aneurysm. It is important that we control his blood pressure and his heart rate and that is why the Cardizem will be added to his regimen. I am not adding beta-blockers because of his underlying COPD. Continue on the low-dose aspirin for now. I thank you for the consultation. MD CAMRON Chacko/DARLING /8:51 PM /9:16 PM
[2017-03-08] MEDS: DILTIAZEM-CD 120 MG CAP ER PO SCH (21:43)
[2017-03-09] VITALS (9 sets, daily range): BP systolic 128–159; BP diastolic 68–71; PULSE 65–97; RESP 20–21; TEMP 97.2–98.1; O2SAT 87–97
[2017-03-09] MEDS: methylPREDNISolone SOD SUCC 40 MG/1 ML VIAL IV PUSH SCH ×3 (00:03→20:40)
[2017-03-09] MEDS: HEPARIN SODIUM - SQ 10,000 UNITS/ML VIAL SQ SCH ×2 (05:26→16:24)
[2017-03-09] MEDS: RESP: ALBUTEROL 2.5 MG/IPRATROPIUM 0.5 MG NEB (SCH) NEB ×2 (07:29→11:19)
[2017-03-09] MEDS: ASPIRIN 81 MG CHEW TAB CHEW SCH (08:28)
[2017-03-09] MEDS: DOCUSATE SODIUM 50 MG/SENNA 8.6 MG TAB PO SCH ×2 (08:28→20:40)
[2017-03-09] MEDS: BUDESONIDE-FORMOTEROL 160/4.5 MCG INHALER INH SCH ×2 (08:28→20:43)
[2017-03-09] MEDS: SODIUM CHLORIDE 0.9% FLUSH 10 ML FLUSH IV FLUSH SCH ×2 (08:29→20:41)
[2017-03-09] MEDS: DILTIAZEM-CD 120 MG CAP ER PO SCH (08:30)
--- NOTE | 2017-03-09 10:15 | HHI.PR ---
Subjective Remarks Follow-up dyspnea, COPD, elevated troponin. The patient states that he feels good today. He is anxious to go home. He states that being in the hospital is raising his blood pressure. Denies chest pain. Dyspnea is stable. Still requiring oxygen. Objective Vitals Vital Signs Date Time Temp Pulse Resp B/P Pulse Ox O2 Delivery O2 Flow Rate FiO2 03/09/17 08:00 97.7 71 20 159/70 90 03/09/17 07:30 97 Nasal Cannula 5.00 03/09/17 04:00 Nasal Cannula 4.00 03/09/17 04:00 97.9 85 21 134/69 90 03/09/17 00:00 97.6 65 20 128/71 87 03/09/17 00:00 Nasal Cannula 4.00 03/08/17 21:17 94 Nasal Cannula 4.00 03/08/17 20:00 Nasal Cannula 4.00 03/08/17 20:00 89 03/08/17 20:00 97.8 78 19 163/85 92 03/08/17 17:24 96 Nasal Cannula 4.00 03/08/17 16:01 97.8 76 18 145/76 94 03/08/17 14:00 88 I/O 03/08/17 03/08/17 03/08/17 03/09/17 03/09/17 03/09/17 06:59 14:59 22:59 06:59 14:59 22:59 Intake Total 240 ml 480 ml 140 ml 890 ml Output Total 400 ml 2000 ml 350 ml 450 ml Balance -160 ml -1520 ml -210 ml 440 ml Intake Oral 240 ml 480 ml 140 ml 890 ml Output Urine Total 400 ml 2000 ml 350 ml 450 ml # Bowel Movements 1 Result Diagram: 03/06/17 0800 03/08/17 [address] Angiography 03/06/17 0000 Signed Impressions: Service Date/Time: February 19:44 - CONCLUSION: Extensive COPD progressed since 2010 with areas of scarring in the right lung not present previously and haziness to both lungs diffusely as above. Grisel Cho MD Chest X-Ray 03/05/17 1124 Signed Impressions: Service Date/Time: Sunday, March 05, 2017 11:40 - CONCLUSION: 1. Severe COPD changes and interstitial fibrotic change. Kevon Mahoney MD Objective Remarks General: Elderly male in no acute distress. Sitting up in a chair. Heart: Regular rate and rhythm. No murmur. Lungs: Mild scattered wheeze. No wheezes, rales, or rhonchi. Breathing is nonlabored. Abdomen: Soft, nontender, nondistended. Extremities: No lower extremity edema. Psych: Alert and oriented. Procedures None Urinary Catheter: No Vascular Central Line Catheter: No A/P Problem List: (1) COPD exacerbation ICD Code: J44.1 Status: Acute (2) Pulmonary interstitial fibrosis ICD Code: J84.10 Status: Acute (3) Hypertension ICD Code: I10 Status: Chronic (4) Acute kidney injury ICD Code: N17.9 Status: Acute Assessment and Plan 1. Acute respiratory failure, COPD exacerbation, interstitial fibrosis: Still requiring supplemental oxygen, 4 L per nasal cannula. Appreciate pulmonology recommendations. Continue steroids, bronchodilators, supplemental oxygen, Symbicort, antibiotics. 2. Elevated troponin: Trending down. Appreciate cardiology recommendations. 3. Hypertension: BETY inhibitor held secondary to low blood pressure. 4. Acute kidney injury: Stable. 5. Anxiety: Ativan as needed. Much of his anxiety is related to being in the hospital. 6. DVT prophylaxis: Heparin. Discharge Planning Possible discharge home with home health care soon. Check home oxygen walk test. Labs are pending. Kenneth Ashby MD Mar 09, 2017 10:15
[2017-03-09 10:26] LABS: MAGNESIUM 2.4 MG/DL (1.5-2.5)
[2017-03-09 10:36] LABS: FREE T4 0.93 NG/DL (0.76-1.46); HDL CHOLESTEROL 50.9 MG/DL (40.0-60.0)
[2017-03-09] MEDS: LISINOPRIL 5 MG TAB PO SCH (14:20)
--- NOTE | 2017-03-09 14:53 | HHI.PR ---
Subjective Remarks alert no sob at rest Objective Vital Signs Date Time Temp Pulse Resp B/P Pulse Ox O2 Delivery O2 Flow Rate FiO2 03/09/17 12:00 98.1 81 20 135/70 91 03/09/17 08:00 97.7 71 20 159/70 90 03/09/17 07:58 97 03/09/17 07:30 97 Nasal Cannula 5.00 03/09/17 04:00 Nasal Cannula 4.00 03/09/17 04:00 97.9 85 21 134/69 90 03/09/17 00:00 97.6 65 20 128/71 87 03/09/17 00:00 Nasal Cannula 4.00 03/08/17 21:17 94 Nasal Cannula 4.00 03/08/17 20:00 Nasal Cannula 4.00 03/08/17 20:00 89 03/08/17 20:00 97.8 78 19 163/85 92 03/08/17 17:24 96 Nasal Cannula 4.00 03/08/17 16:01 97.8 76 18 145/76 94 I/O 03/08/17 03/08/17 03/08/17 03/09/17 03/09/17 03/09/17 07:00 15:00 23:00 07:00 15:00 23:00 Intake Total 240 ml 480 ml 140 ml 890 ml Output Total 400 ml 2000 ml 350 ml 450 ml Balance -160 ml -1520 ml -210 ml 440 ml Intake Oral 240 ml 480 ml 140 ml 890 ml Output Urine Total 400 ml 2000 ml 350 ml 450 ml # Bowel Movements 1 Result Diagram: 03/06/17 0800 03/08/17 1835 Objective Remarks GENERAL: SKIN: Warm and dry. HEAD: Atraumatic. Normocephalic. EYES: Pupils equal and round. No scleral icterus. No injection or drainage. ENT: No nasal bleeding or discharge. Mucous membranes pink and moist. NECK: Trachea midline. No JVD. CARDIOVASCULAR: Regular rate and rhythm. RESPIRATORY: No accessory muscle use. Clear to auscultation. Breath sounds equal bilaterally. GASTROINTESTINAL: Abdomen soft, non-tender, nondistended. Hepatic and splenic margins not palpable. MUSCULOSKELETAL: Extremities without clubbing, cyanosis, or edema. No obvious deformities. NEUROLOGICAL: Awake and alert. No obvious cranial nerve deficits. Motor grossly within normal limits. Five out of 5 muscle strength in the arms and legs. Normal speech. PSYCHIATRIC: Appropriate mood and affect; insight and judgment normal. Assessment and Plan Assessment and Plan ass COPD EX.IMPROVED PLAN: INCREASE ACTIVITY HOME AM IF STABLE Miah Dooley MD Mar 09, 2017 14:53
[2017-03-09] MEDS ORDERED: PRAVASTATIN SOD 20 MG TAB PO SCH (21:00)
[2017-03-10] VITALS: BP 107/57; PULSE 80; RESP 20; TEMP 97.4; O2SAT 93
[2017-03-10 04:00] VITALS: BP 131/61; PULSE 72; RESP 20; TEMP 97.2; O2SAT 95
[2017-03-10] MEDS: HEPARIN SODIUM - SQ 10,000 UNITS/ML VIAL SQ SCH (06:09)
[2017-03-10 08:14] VITALS: BP 133/76; PULSE 66; RESP 19; TEMP 97.6; O2SAT 94
--- NOTE | 2017-03-10 08:41 | HHI.PR ---
Subjective Remarks alert no sob at rest Objective Vital Signs Date Time Temp Pulse Resp B/P Pulse Ox O2 Delivery O2 Flow Rate FiO2 03/10/17 08:14 97.6 66 19 133/76 94 03/10/17 04:00 97.2 72 20 131/61 95 03/10/17 04:00 Nasal Cannula 4.00 03/10/17 00:00 Nasal Cannula 4.00 03/10/17 00:00 97.4 80 20 107/57 93 03/09/17 20:00 75 03/09/17 20:00 97.5 78 20 138/68 96 03/09/17 20:00 Nasal Cannula 4.00 03/09/17 17:39 95 Nasal Cannula 4.00 03/09/17 16:00 97.2 67 20 151/68 93 03/09/17 12:00 Nasal Cannula 4.00 03/09/17 12:00 98.1 81 20 135/70 91 I/O 03/09/17 03/09/17 03/09/17 03/10/17 03/10/17 03/10/17 07:00 15:00 23:00 07:00 15:00 23:00 Intake Total 890 ml 480 ml 240 ml 240 ml Output Total 450 ml 300 ml 600 ml Balance 440 ml 480 ml -60 ml -360 ml Intake Oral 890 ml 480 ml 240 ml 240 ml Output Urine Total 450 ml 300 ml 600 ml # Voids 3 # Bowel Movements 1 0 0 Result Diagram: 03/06/17 0800 03/08/17 9229 Objective Remarks GENERAL: SKIN: Warm and dry. HEAD: Atraumatic. Normocephalic. EYES: Pupils equal and round. No scleral icterus. No injection or drainage. ENT: No nasal bleeding or discharge. Mucous membranes pink and moist. NECK: Trachea midline. No JVD. CARDIOVASCULAR: Regular rate and rhythm. RESPIRATORY: No accessory muscle use. Clear to auscultation. Breath sounds equal bilaterally. GASTROINTESTINAL: Abdomen soft, non-tender, nondistended. Hepatic and splenic margins not palpable. MUSCULOSKELETAL: Extremities without clubbing, cyanosis, or edema. No obvious deformities. NEUROLOGICAL: Awake and alert. No obvious cranial nerve deficits. Motor grossly within normal limits. Five out of 5 muscle strength in the arms and legs. Normal speech. PSYCHIATRIC: Appropriate mood and affect; insight and judgment normal. Assessment and Plan Assessment and Plan ass COPD EX.IMPROVED PLAN: INCREASE ACTIVITY OK FOR D/C HOME OFFICE 1 WEEK Miah Dooley MD Mar 10, 2017 08:41
[2017-03-10] MEDS: DOCUSATE SODIUM 50 MG/SENNA 8.6 MG TAB PO SCH (09:00)
[2017-03-10 09:30] VITALS: PULSE 86; O2SAT 98
[2017-03-10] MEDS: LISINOPRIL 5 MG TAB PO SCH (09:32)
[2017-03-10] MEDS: DILTIAZEM-CD 120 MG CAP ER PO SCH (09:32)
[2017-03-10] MEDS: ASPIRIN 81 MG CHEW TAB CHEW SCH (09:32)
[2017-03-10] MEDS: methylPREDNISolone SOD SUCC 40 MG/1 ML VIAL IV PUSH SCH (09:34)
[2017-03-10] MEDS: SODIUM CHLORIDE 0.9% FLUSH 10 ML FLUSH IV FLUSH SCH (09:34)
[2017-03-10] MEDS: LEVOFLOXACIN 750 MG TAB PO SCH (09:34)
[2017-03-10] MEDS: BUDESONIDE-FORMOTEROL 160/4.5 MCG INHALER INH SCH (09:34)
[2017-03-10] MEDS ORDERED: ALBUAER3 INH (09:43)
--- NOTE | 2017-03-10 10:12 | HHI.FF ---
Face to Face Verification Diagnosis: (1) COPD exacerbation (2) Pulmonary interstitial fibrosis Physical Therapy Order: Evaluate and Treat Home Health Nursing Order: Oxygen administration education Nursing assessment with vital signs I have seen patient Jewel Jackman on 03/10/17. My clinical findings support the need for the requested home health care services because: Patient has SOB I certify that my clinical findings support that this patient is homebound because: Hx COPD- exertion dyspnea/weakness Kenneth Ashby MD Mar 10, 2017 10:12
[2017-03-10] MEDS ORDERED: OXYGENDME NAS.CANULA ×2 (10:14→10:54)
--- NOTE | 2017-03-10 10:57 | HHI.PR ---
Subjective Remarks Follow-up COPD, elevated troponin. Patient still requiring 4 L of oxygen. Denies chest pain or dyspnea today. Has some pain in his feet and continues to have lower extremity swelling. Wants to go home. Objective Vitals Vital Signs Date Time Temp Pulse Resp B/P Pulse Ox O2 Delivery O2 Flow Rate FiO2 03/10/17 09:31 4.00 03/10/17 09:30 98 Nasal Cannula 4.00 03/10/17 08:14 97.6 66 19 133/76 94 03/10/17 04:00 97.2 72 20 131/61 95 03/10/17 04:00 Nasal Cannula 4.00 03/10/17 00:00 Nasal Cannula 4.00 03/10/17 00:00 97.4 80 20 107/57 93 03/09/17 20:00 75 03/09/17 20:00 97.5 78 20 138/68 96 03/09/17 20:00 Nasal Cannula 4.00 03/09/17 17:39 95 Nasal Cannula 4.00 03/09/17 16:00 97.2 67 20 151/68 93 03/09/17 12:00 Nasal Cannula 4.00 03/09/17 12:00 98.1 81 20 135/70 91 I/O 03/09/17 03/09/17 03/09/17 03/10/17 03/10/17 03/10/17 07:00 15:00 23:00 07:00 15:00 23:00 Intake Total 890 ml 480 ml 240 ml 240 ml Output Total 450 ml 300 ml 600 ml Balance 440 ml 480 ml -60 ml -360 ml Intake Oral 890 ml 480 ml 240 ml 240 ml Output Urine Total 450 ml 300 ml 600 ml # Voids 3 # Bowel Movements 1 0 0 Result Diagram: 03/06/17 0800 03/08/17 [address] Angiography 03/06/17 0000 Signed Impressions: Service Date/Time: February 19:44 - CONCLUSION: Extensive COPD progressed since 2010 with areas of scarring in the right lung not present previously and haziness to both lungs diffusely as above. Grisel Cho MD Chest X-Ray 03/05/17 1124 Signed Impressions: Service Date/Time: Sunday, March 05, 2017 11:40 - CONCLUSION: 1. Severe COPD changes and interstitial fibrotic change. Kevon Mahoney MD Objective Remarks General: Elderly male in no acute distress. Sitting up in a chair. Heart: Regular rate and rhythm. No murmur. Lungs: Clear to auscultation bilaterally. No wheezes, rales, or rhonchi. Breathing is nonlabored. Abdomen: Soft, nontender, nondistended. Extremities: Trace bilateral lower extremity edema. Psych: Alert and oriented. Procedures None Urinary Catheter: No Vascular Central Line Catheter: No A/P Problem List: (1) COPD exacerbation ICD Code: J44.1 Status: Acute (2) Pulmonary interstitial fibrosis ICD Code: J84.10 Status: Acute (3) Hypertension ICD Code: I10 Status: Chronic (4) Acute kidney injury ICD Code: N17.9 Status: Acute Assessment and Plan 1. Acute respiratory failure, COPD exacerbation, interstitial fibrosis: Still requiring supplemental oxygen, 4 L per nasal cannula. Appreciate pulmonology recommendations. Continue steroids, bronchodilators, supplemental oxygen, Symbicort, antibiotics. Home oxygen walk test done. Case management arranging home oxygen. Cleared for discharge by pulmonology. 2. Elevated troponin: Trending down. Appreciate cardiology recommendations. 3. Hypertension: BETY inhibitor held secondary to low blood pressure. 4. Acute kidney injury: Stable. 5. Anxiety: Ativan as needed. Much of his anxiety is related to being in the hospital. 6. DVT prophylaxis: Heparin. Discharge Planning Plan for discharge home with home oxygen when cleared by cardiology. Kenneth Ashby MD Mar 10, 2017 10:57
[2017-03-10] MEDS ORDERED: SYMB160A INH (11:30)
[2017-03-10] MEDS ORDERED: PRED20 PO (11:30)
[2017-03-10] MEDS ORDERED: PRAV20TA PO (11:30)
[2017-03-10] MEDS ORDERED: CARD120C4 PO (11:30)
--- NOTE | 2017-03-10 11:33 | HHI.DCPOC ---
Discharge Care Plan Diagnosis: (1) COPD exacerbation (2) Acute kidney injury (3) Hypertension (4) Elevated troponin I level Goals to Promote Your Health * To prevent worsening of your condition and complications * To maintain your health at the optimal level Directions to Meet Your Goals Take your medications as prescribed Follow your dietary instruction Follow activity as directed Keep your appointments as scheduled Take your immunizations and boosters as scheduled If your symptoms worsen call your PCP, if no PCP go to Urgent Care Center or Emergency Room Smoking is Dangerous to Your Health. Avoid second hand smoke Call the 24-hour hour crisis hotline for domestic abuse at Kenneth Ashby MD Mar 10, 2017 11:33
[2017-03-10 12:08] VITALS: BP 122/59; PULSE 81; RESP 20; TEMP 97.4; O2SAT 91
== END 2017-03-10 15:56 | disposition home health service (06) | DRG 189 ==
LOC: NEPC 11:20 → NEDA 16:14 → N04B 20:16
PROVIDERS: ADMIT Family Medicine; ATTEND Family Medicine
PROC: 5A09357 Assistance with Respiratory Ventilation, Less than 24 Consecutive Hours, Continuous Positive Airway Pressure (ICD-10-PCS; principal; 2017-03-05)
DX: J96.01 Acute respiratory failure with hypoxia (principal); N17.9 Acute kidney failure, unspecified; J44.1 Chronic obstructive pulmonary disease with (acute) exacerbation; E87.1 Hypo-osmolality and hyponatremia; I45.2 Bifascicular block; I47.1 Supraventricular tachycardia; J84.10 Pulmonary fibrosis, unspecified; I10 Essential (primary) hypertension; E87.5 Hyperkalemia; I49.3 Ventricular premature depolarization; I71.4 Abdominal aortic aneurysm, without rupture; F41.9 Anxiety disorder, unspecified; Z87.891 Personal history of nicotine dependence
CPT/HCPCS: 36600; 71010; 71275; 80048; 80061; 82550; 82805; 83735; 83880; 84100; 84439; 84443; 84484; 85007; 85027; 85379; 85610; 85730; 93005; 94002; 94003; 94150; 94620; 94640; 94664; 96365; 96367; 96375; J0456; J0696; J1644; J2920; J2930; J7030; J7040; J7050; J7512; Q9967

== ENCOUNTER 2018-02-18 11:06 | Inpatient (IN) | payer MEDICARE, OTHER ==
[~2018-02-18] VITALS: Ht 172.7 cm; Wt 79.0 kg
[~2018-02-18 11:06] MED LIST changes: +ALBUAER3 INH; +ASPI-516 CHEW; -ASPI81 PO; +CARD120C4 PO; +OXYGENDME NAS.CANULA; +PRAV20TA PO; +PRED20 PO; +SYMB160A INH
[2018-02-18 11:25] VITALS: BP 185/96; PULSE 126; RESP 20; TEMP 98.6; O2SAT 95
[2018-02-18 11:27] VITALS: BP 157/82; PULSE 101; RESP 16; TEMP 98.4; O2SAT 94
[2018-02-18 12:30] LABS: BASOPHIL # 0.1 TH/MM3 (0-0.2); BASOPHIL % 0.4 % (0.0-2.0); EOSINOPHIL # 0.1 TH/MM3 (0-0.4); HEMATOCRIT 40.9 % (39.0-51.0); HEMOGLOBIN 13.8 GM/DL (13.0-17.0); LYMPH % 12.8 % (9.0-44.0); LYMPHOCYTE # 1.5 TH/MM3 (1.0-4.8); MEAN CELL VOLUME 89.3 FL (80.0-100.0); MEAN CORPUSCULAR HEMOGLOBIN 30.2 PG (27.0-34.0); MEAN CORPUSCULAR HGB CONC 33.8 % (32.0-36.0); MEAN PLATELET VOLUME 7.8 FL (7.0-11.0); MONOCYTE # 1.1 TH/MM3 (0-0.9); NEUT % 76.8 % (16.0-70.0); PLATELET COUNT 211 TH/MM3 (150-450); RED BLOOD COUNT 4.58 MIL/MM3 (4.50-5.90); RED CELL DISTRIBUTION WIDTH 15.2 % (11.6-17.2); WHITE BLOOD COUNT 11.7 TH/MM3 (4.0-11.0)
[2018-02-18 12:37] LABS: ALT (GPT) 19 U/L (12-78)
[2018-02-18 12:45] LABS: ALBUMIN 3.9 GM/DL (3.4-5.0); AST (GOT) 23 U/L (15-37); BICARBONATE 25.1 MEQ/L (21.0-32.0); BLOOD UREA NITROGEN 18 MG/DL (7-18); CALCIUM 9.2 MG/DL (8.5-10.1); CHLORIDE 104 MEQ/L (98-107); CREATININE 1.25 MG/DL (0.60-1.30); GLOMERULAR FILTRATION RATE 54 ML/MIN (>89); GLUCOSE,RANDOM 113 MG/DL (74-106); SODIUM (NA) 138 MEQ/L (136-145)
[2018-02-18 13:44] LABS: ALKALINE PHOSPHATASE 61 U/L (45-117); TOTAL BILIRUBIN ADULT 0.6 MG/DL (0.2-1.0); TOTAL PROTEIN 7.5 GM/DL (6.4-8.2)
--- NOTE | 2018-02-18 14:43 | PD ---
HPI Chief Complaint: Psychiatric Symptoms Time Seen by Provider: 13:44 Travel History International Travel<30 days: No Contact w/Intl Traveler<30days: No Traveled to known affect area: No History of Present Illness HPI 88-year-old male the presents to the ED for evaluation of [place] act. Per record patient apparently going argument with and states that he was in a walk to the mall was in a walking to he kills himself. Apparently fire department got involved and patient was [place] acted by police secondary to his statements. Patient to me denies any medical issues. Per patient he takes no medications. Per medical records he does have a history of COPD and other medical conditions. Patient's only complaint to me is that he is having some lower abdominal pain that he has had for a couple of days. He points to his lower abdomen as the area of pain. He denies any other medical issues. Per patient the pain is 5 out of 10. No diarrhea. No nausea or vomiting. History is limited at this time. Patient himself does not appear to be a good historian. Do suspect the patient may have some underlying dementia. PFSH Past Medical History AAA: Yes Heart Rhythm Problems: No Cardiac Catheterization: No Cardiovascular Problems: No High Cholesterol: No Congestive Heart Failure: No COPD: Yes Diabetes: Yes Patient Takes Glucophage: No Diminished Hearing: No Heparin Induced Thrombocytopen: No Hypertension: Yes Musculoskeletal: No Respiratory: Yes ?: Not Past Surgical History Coronary Artery Bypass Graft: No Other Surgery: Yes (Bilateral hernia repair 15 years ago. Right leg surgery.) Social History Alcohol Use: No Tobacco Use: No Substance Use: No Allergies-Medications (Allergen,Severity, Reaction): Coded Allergies: No Known Allergies (Verified Adverse Reaction, Unknown, 02/18/18) Reported Meds & Prescriptions Reported Meds & Active Scripts Active Pravachol (Pravastatin) 20 Mg Tab 20 Mg PO HS Cardizem CD 24 HR (Diltiazem CD 24 HR) 120 Mg Caper 120 Mg PO DAILY Symbicort Inh (Budesonide/Formoterol Fumarate) 160-4.5 Mcg/Act Aero 1 Puff INH Q12HR Reported Proair Hfa 8.5 GM Inh (Albuterol Sulfate) 90 Mcg/Act Aer 2 Puff INH Q4-6H PRN 108 mcg/actuation Benazepril (Benazepril HCl) 5 Mg Tab 5 Mg PO DAILY Aspirin 81 Mg Chew 81 Mg CHEW DAILY Review of Systems ROS Limitations: Poor Historian Except as stated in HPI: all other systems reviewed are Neg Physical Exam Exam Limitations: Poor Historian Narrative GENERAL: SKIN: Warm and dry. HEAD: Atraumatic. Normocephalic. EYES: Pupils equal and round. No scleral icterus. No injection or drainage. ENT: No nasal bleeding or discharge. Mucous membranes pink and moist. Tongue is midline. No uvula deviation. NECK: Trachea midline. No JVD. CARDIOVASCULAR: Regular rate and rhythm. No murmurs, S3, S4. RESPIRATORY: No accessory muscle use. Clear to auscultation. Breath sounds equal bilaterally. GASTROINTESTINAL: Abdomen soft, non-tender, nondistended. Hepatic and splenic margins not palpable. MUSCULOSKELETAL: Extremities without clubbing, cyanosis, or edema. No obvious deformities. Full range of motion of the upper and lower extremities bilaterally. 2+ pulses bilaterally. Patient does have reproducible lower abdominal discomfort but does appear to have what appears to be a hernia in the area which appears to be soft and reducible. NEUROLOGICAL: Awake and alert. No obvious cranial nerve deficits. Motor grossly within normal limits. Five out of 5 muscle strength in the arms and legs. Normal speech. PSYCHIATRIC: Appropriate mood and affect; insight and judgment normal. Data Data Last Documented VS Vital Signs Date Time Temp Pulse Resp B/P (MAP) Pulse Ox O2 Delivery O2 Flow Rate FiO2 02/18/18 18:00 97.8 89 16 152/81 (104) 99 Orders Orders Complete Blood Count With Diff (02/18/18 12:21) Comprehensive Metabolic Panel (02/18/18 12:21) Thyroid Stimulating Hormone (02/18/18 12:21) Psych Screen (02/18/18 12:21) Drug Screen, Random Urine (02/18/18 12:21) Urinalysis - C+S If Indicated (02/18/18 14:10) Ct Abd/Pel W/O Iv Contrast (02/18/18 ) Lipase (02/18/18 11:27) Haloperidol Inj (Haldol Inj) (02/18/18 20:15) Lorazepam Inj (Ativan Inj) (02/18/18 20:15) Labs Laboratory Tests Test 02/18/18 11:27 02/18/18 13:06 White Blood Count 11.7 TH/MM3 Red Blood Count 4.58 MIL/MM3 Hemoglobin 13.8 GM/DL Hematocrit 40.9 % Mean Corpuscular Volume 89.3 FL Mean Corpuscular Hemoglobin 30.2 PG Mean Corpuscular Hemoglobin Concent 33.8 % Red Cell Distribution Width 15.2 % Platelet Count 211 TH/MM3 Mean Platelet Volume 7.8 FL Neutrophils (%) (Auto) 76.8 % Lymphocytes (%) (Auto) 12.8 % Monocytes (%) (Auto) 9.0 % Eosinophils (%) (Auto) 1.0 % Basophils (%) (Auto) 0.4 % Neutrophils # (Auto) 9.0 TH/MM3 Lymphocytes # (Auto) 1.5 TH/MM3 Monocytes # (Auto) 1.1 TH/MM3 Eosinophils # (Auto) 0.1 TH/MM3 Basophils # (Auto) 0.1 TH/MM3 CBC Comment DIFF FINAL Differential Comment Blood Urea Nitrogen 18 MG/DL Creatinine 1.25 MG/DL Random Glucose 113 MG/DL Total Protein 7.5 GM/DL Albumin 3.9 GM/DL Calcium Level 9.2 MG/DL Alkaline Phosphatase 61 U/L Aspartate Amino Transf (AST/SGOT) 23 U/L Alanine Aminotransferase (ALT/SGPT) 19 U/L Total Bilirubin 0.6 MG/DL Sodium Level 138 MEQ/L Potassium Level 4.5 MEQ/L Chloride Level 104 MEQ/L Carbon Dioxide Level 25.1 MEQ/L Anion Gap 9 MEQ/L Estimat Glomerular Filtration Rate 54 ML/MIN Lipase 151 U/L Thyroid Stimulating Hormone 3rd Gen 3.150 uIU/ML Urine Color YELLOW Urine Turbidity CLEAR Urine pH 6.0 Urine Specific [place] 1.012 Urine Protein NEG mg/dL Urine Glucose (UA) NEG mg/dL Urine Ketones NEG mg/dL Urine Occult Blood MOD Urine Nitrite NEG Urine Bilirubin NEG Urine Urobilinogen LESS THAN 2 mg/dL Urine Leukocyte Esterase NEG Urine RBC 4 /hpf Urine WBC 1 /hpf Urine Bacteria RARE /hpf Urine Mucus FEW /lpf Microscopic Urinalysis Comment CULT NOT INDICATED Urine Opiates Screen NEG Urine Barbiturates Screen NEG Urine Amphetamines Screen NEG Urine Benzodiazepines Screen NEG Urine Cocaine Screen NEG Urine Cannabinoids Screen NEG MDM Medical Decision Making Medical Screen Exam Complete: Yes Emergency Medical Condition: Yes Medical Record Reviewed: Yes Interpretation(s) CBC & BMP Diagram 02/18/18 11:27 Total Protein 7.5, Albumin 3.9, Calcium Level 9.2, Alkaline Phosphatase 61, Aspartate Amino Transf (AST/SGOT) 23, Alanine Aminotransferase (ALT/SGPT) 19, Total Bilirubin 0.6 Differential Diagnosis Depression versus suicidal ideation versus anxiety versus adjustment disorder versus mood disorder versus bipolar disorder versus schizophrenia versus paranoid disorder versus psychosis versus substance abuse versus alcohol abuse versus alcohol induced psychosis versus homicidality addition versus cutting versus personality disorder Narrative Course 88-year-old male the presents to the ED for evaluation of [place] act. Patient was properly examined and was found to have signs and symptoms of unclear etiology. Patient apparently was [place] acted secondary to making suicidal statements. Patient himself denies this. He denies any other medical issues as well although he does appear to have some chronic medical issues for which she takes medications but per patient he takes nothing. Unclear this may be related to possible dementia. At this time labs and imaging order. He did complain of some abdominal pain so CT was ordered. I do suspect that this is likely chronic from a hernia but will rule out any acute disease. Labs and imaging still pending at the writing of this note. Case will be signed out to incoming provider pending disposition and plan. Jonny Corona Feb 18, 2018 14:43
[2018-02-18 14:44] LABS: BACTERIA, URINE RARE /hpf; BILIRUBIN, URINE NEG (NEG); BLOOD, URINE MOD (NEG); GLUCOSE,URINE NEG (NEG); KETONE, URINE NEG (NEG); MUCUS URINE FEW /lpf (OCC); NITRITE,URINE NEG (NEG); URINE COLOR YELLOW (YELLW/STRAW); URINE LEUKOCYTE ESTERASE NEG (NEG)
[2018-02-18 16:00] VITALS: BP 143/85; PULSE 89; RESP 17; TEMP 97.8; O2SAT 99
--- NOTE | 2018-02-18 16:12 | RADRPT ---
EXAM DATE: 02/18/2018 3:57 PM EDT AGE/SEX: 88 years / Male INDICATIONS: Abdominal pain. CLINICAL DATA: This is the patient's initial encounter. Patient reports that signs and symptoms have been present for 1 day and indicates a pain score of 4/10. MEDICAL/SURGICAL HISTORY: Hypertension. Chronic obstructive pulmonary disease. Diabetes. None . RADIATION DOSE: 6.57 CTDI (mGy) COMPARISON: C, CTA ABDOMEN & PELVIS W 3D RECON, 08/14/2011. . TECHNIQUE: Multiple contiguous axial images were obtained through the abdomen. Images were obtained using multiple row detector helical technique. Using automated exposure control and adjustment of the mA and/or kV according to patient size, radiation dose was kept as low as reasonably achievable to o btain optimal diagnostic quality images. DICOM format image data is available electronically for rev iew and comparison. FINDINGS: Lower Lungs: Emphysematous and fibrotic changes in both lung bases. No confluent infiltrate. Liver: The liver has a homogeneous density without space-occupying lesion. There is no dilation of th e biliary tree. Spleen: Homogeneous density without enlargement. Pancreas: Unremarkable without mass or calcification. Kidneys: Normal in size and shape. No evidence of mass or hydronephrosis. Adrenal Glands: Unremarkable. Aorta: 3.4 cm infrarenal abdominal aortic aneurysm. Bowel/Mesentery: Diverticular disease of the descending and sigmoid colon without diverticulitis Abdominal Wall: Intact. 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 Retroperitoneum: No evidence of adenopathy in the retrocrural, para-aortic, or deep pelvic regions. Bladder: Contours are smooth. Reproductive Organs: No abnormal masses or calcifications seen. Inguinal: Small left inguinal hernia which only contains fat. No adenopathy. Bony Structures: Unremarkable. CONCLUSION: 1. No acute intraperitoneal or pelvic process to explain current clinical symptoms. 2. 3.4 cm infrarenal abdominal aortic aneurysm shows minimal interval growth over the past 7 years. 3. 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 4. 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
[2018-02-18 18:00] VITALS: BP 152/81; PULSE 89; RESP 16; TEMP 97.8; O2SAT 99
--- NOTE | 2018-02-18 20:12 | PD ---
Physical Exam Narrative GENERAL: Patient Pacing around the emergency department trying to go and get away because he no longer needs to be here according to the patient, patient is still under a [place] act and he continues to exit his room and attempted to walk out of the emergency department, security was contacted SKIN: Warm and dry. HEAD: Atraumatic. Normocephalic. EYES: Pupils equal and round. No scleral icterus. No injection or drainage. ENT: No nasal bleeding or discharge. Mucous membranes pink and moist. NECK: Trachea midline. No JVD. CARDIOVASCULAR: Regular rate and rhythm. RESPIRATORY: No accessory muscle use. Clear to auscultation. Breath sounds equal bilaterally. GASTROINTESTINAL: Abdomen soft, non-tender, nondistended. Hepatic and splenic margins not palpable. MUSCULOSKELETAL: Extremities without clubbing, cyanosis, or edema. No obvious deformities. NEUROLOGICAL: Awake with a possible underlying dementia.... no obvious cranial nerve deficits. Motor grossly within normal limits. Five out of 5 muscle strength in the arms and legs. Normal speech. PSYCHIATRIC: AGITATED mood and affect; POOR insight and judgment ABNORMAL. Data Data Last Documented VS Vital Signs Date Time Temp Pulse Resp B/P (MAP) Pulse Ox O2 Delivery O2 Flow Rate FiO2 02/18/18 18:00 97.8 89 16 152/81 (104) 99 Orders Orders Complete Blood Count With Diff (02/18/18 12:21) Comprehensive Metabolic Panel (02/18/18 12:21) Thyroid Stimulating Hormone (02/18/18 12:21) Psych Screen (02/18/18 12:21) Drug Screen, Random Urine (02/18/18 12:21) Urinalysis - C+S If Indicated (02/18/18 14:10) Ct Abd/Pel W/O Iv Contrast (02/18/18 ) Lipase (02/18/18 11:27) Haloperidol Inj (Haldol Inj) (02/18/18 20:15) Lorazepam Inj (Ativan Inj) (02/18/18 20:15) Labs Laboratory Tests Test 02/18/18 11:27 02/18/18 13:06 White Blood Count 11.7 TH/MM3 Red Blood Count 4.58 MIL/MM3 Hemoglobin 13.8 GM/DL Hematocrit 40.9 % Mean Corpuscular Volume 89.3 FL Mean Corpuscular Hemoglobin 30.2 PG Mean Corpuscular Hemoglobin Concent 33.8 % Red Cell Distribution Width 15.2 % Platelet Count 211 TH/MM3 Mean Platelet Volume 7.8 FL Neutrophils (%) (Auto) 76.8 % Lymphocytes (%) (Auto) 12.8 % Monocytes (%) (Auto) 9.0 % Eosinophils (%) (Auto) 1.0 % Basophils (%) (Auto) 0.4 % Neutrophils # (Auto) 9.0 TH/MM3 Lymphocytes # (Auto) 1.5 TH/MM3 Monocytes # (Auto) 1.1 TH/MM3 Eosinophils # (Auto) 0.1 TH/MM3 Basophils # (Auto) 0.1 TH/MM3 CBC Comment DIFF FINAL Differential Comment Blood Urea Nitrogen 18 MG/DL Creatinine 1.25 MG/DL Random Glucose 113 MG/DL Total Protein 7.5 GM/DL Albumin 3.9 GM/DL Calcium Level 9.2 MG/DL Alkaline Phosphatase 61 U/L Aspartate Amino Transf (AST/SGOT) 23 U/L Alanine Aminotransferase (ALT/SGPT) 19 U/L Total Bilirubin 0.6 MG/DL Sodium Level 138 MEQ/L Potassium Level 4.5 MEQ/L Chloride Level 104 MEQ/L Carbon Dioxide Level 25.1 MEQ/L Anion Gap 9 MEQ/L Estimat Glomerular Filtration Rate 54 ML/MIN Lipase 151 U/L Thyroid Stimulating Hormone 3rd Gen 3.150 uIU/ML Urine Color YELLOW Urine Turbidity CLEAR Urine pH 6.0 Urine Specific [place] 1.012 Urine Protein NEG mg/dL Urine Glucose (UA) NEG mg/dL Urine Ketones NEG mg/dL Urine Occult Blood MOD Urine Nitrite NEG Urine Bilirubin NEG Urine Urobilinogen LESS THAN 2 mg/dL Urine Leukocyte Esterase NEG Urine RBC 4 /hpf Urine WBC 1 /hpf Urine Bacteria RARE /hpf Urine Mucus FEW /lpf Microscopic Urinalysis Comment CULT NOT INDICATED Urine Opiates Screen NEG Urine Barbiturates Screen NEG Urine Amphetamines Screen NEG Urine Benzodiazepines Screen NEG Urine Cocaine Screen NEG Urine Cannabinoids Screen NEG MDM Medical Record Reviewed: Yes Supervised Visit with RIAZ: No Narrative Course This patient on evaluation appears to have sundowner type of episode, very commonly seen with dementia patients. However this patient does not have listed diagnosis of dementia. However due to his agitation and anxiety the patient was given some Haldol and Ativan for calming purposes, as the patient is still awaiting a [place] act to be evaluated by psychiatry. Patient continues to have normal vital signs normal blood pressure at this present time. Diagnosis Primary Impression: Agitation likely secondary to Chapin Yin MD Feb 18, 2018 20:12
[2018-02-18] MEDS ORDERED: HALOPERIDOL LACTATE 5 MG/ML AMP IM ONE (20:15)
[2018-02-18] MEDS ORDERED: LORazepam 2 MG/ML VIAL IM ONE (20:15)
[2018-02-18] MEDS ORDERED: NICOTINE 21 MG/24 HR PATCH T-DERMAL PRN (21:30)
[2018-02-18] MEDS ORDERED: ALBUTEROL SULFATE 90 MCG/ACT HFA 8 GM INHALER INH PRN (21:30)
[2018-02-18] MEDS ORDERED: ACETAMINOPHEN 325 MG TAB PO PRN (21:30)
[2018-02-18] MEDS ORDERED: ALUMINUM/MAGNESIUM/SIMETH 30 ML CUP PO PRN (21:30)
[2018-02-18] MEDS ORDERED: MAGNESIUM HYDROXIDE SUSP 30 ML CUP PO PRN (21:30)
[2018-02-18] MEDS ORDERED: REMOVE OLD NICODERM (NICOTINE) PATCH T-DERMAL PRN (22:00)
[2018-02-19 00:10] VITALS: BP 144/68; PULSE 87; RESP 18; TEMP 97.4; O2SAT 93
[2018-02-19 06:08] VITALS: BP 122/68; PULSE 80; RESP 18; TEMP 97.8; O2SAT 93
[2018-02-19 07:23] LABS: AUTOMATED NEUTROPHIL # 5.8 TH/MM3 (1.8-7.7); BASOPHIL # 0.1 TH/MM3 (0-0.2); BASOPHIL % 0.6 % (0.0-2.0); EOSINOPHIL # 0.3 TH/MM3 (0-0.4); EOSINOPHIL % 3.2 % (0.0-4.0); HEMATOCRIT 40.3 % (39.0-51.0); HEMOGLOBIN 13.8 GM/DL (13.0-17.0); LYMPH % 22.5 % (9.0-44.0); MEAN CELL VOLUME 88.8 FL (80.0-100.0); MEAN CORPUSCULAR HEMOGLOBIN 30.4 PG (27.0-34.0); MEAN CORPUSCULAR HGB CONC 34.2 % (32.0-36.0); MEAN PLATELET VOLUME 7.4 FL (7.0-11.0); MONO % 9.4 % (0.0-8.0); MONOCYTE # 0.9 TH/MM3 (0-0.9); NEUT % 64.3 % (16.0-70.0); PLATELET COUNT 206 TH/MM3 (150-450); RED BLOOD COUNT 4.54 MIL/MM3 (4.50-5.90); RED CELL DISTRIBUTION WIDTH 15.4 % (11.6-17.2); WHITE BLOOD COUNT 9.1 TH/MM3 (4.0-11.0)
[2018-02-19 07:49] LABS: BICARBONATE 29.6 MEQ/L (21.0-32.0); BLOOD UREA NITROGEN 16 MG/DL (7-18); CHLORIDE 105 MEQ/L (98-107); CREATININE 1.06 MG/DL (0.60-1.30); GLOMERULAR FILTRATION RATE 66 ML/MIN (>89); GLUCOSE,RANDOM 80 MG/DL (74-106); SODIUM (NA) 143 MEQ/L (136-145)
[2018-02-19 07:50] LABS: CHOLESTEROL 149 MG/DL (120-200); TRIGLYCERIDES 96 MG/DL (42-150)
[2018-02-19 07:52] LABS: CHOLESTEROL/ HDL RATIO 3.43 RATIO; HDL CHOLESTEROL 43.4 MG/DL (40.0-60.0); LDL CHOLESTEROL 86 MG/DL (0-99)
[2018-02-19] MEDS ORDERED: BUDESONIDE-FORMOTEROL 160/4.5 MCG INHALER INH SCH (09:00)
[2018-02-19] MEDS ORDERED: ASPIRIN 81 MG CHEW TAB CHEW SCH (09:00)
[2018-02-19] MEDS ORDERED: LISINOPRIL 5 MG TAB PO SCH (09:00)
[2018-02-19] MEDS ORDERED: DILTIAZEM-CD 120 MG CAP ER PO SCH (09:00)
--- NOTE | 2018-02-19 12:13 | HHI.HP ---
Provisional Diagnosis Admission Date Feb 18, 2018 at 21:25 [place] I. Adjustment disorder with mixed disturbances of emotion and conduct Certification of Person's Competence To Provide Express and Informed Consent I have personally examined Jewel Jackman , a person being served at [facility] on, Feb 19, 2018 12:00. Express and informed consent means consent voluntarily given in writing, by a competent person, after sufficient explanation and disclosure of the subject matter involved to enable the person to make a knowing and willful decision without any element of force, fraud, deceit, duress, or other form of constraint or coercion. This person is 18 years of age or older, is not now known to be incompetent to consent to treatment with a guardian advocate, and does not have a health care surrogate or proxy currently making medical treatment decisions. I have found this person to be one of the following: [xxx] Competent to provide express and informed consent, as defined above, for voluntary admission to this facility and is competent to provide express and informed consent for treatment. He/she has the consistent capacity to make well reasoned, willful, and knowing decisions concerning his or her medical or mental health treatment. The person fully and consistently understands the purpose of the admission for examination/placement and is fully capable of personally exercising all rights assured [place] Incompetent to provide express and informed consent to voluntary admission, and this is incompetent to provide express and informed consent to treatment. The person must be transferred to involuntary status and a petition for a guardian advocate filed with the Circuit Court. [] Refusing to provide express and informed consent to voluntary admission but is competent to provide express and informed consent for treatment. The person must be discharged or transferred to involuntary status. Form shall be completed within 24 hours of a person's arrival at the receiving facility and filed in the clinical record of each person: 1. Admitted on a voluntary basis 2. Permitted to provide express and informed consent to his/her own treatment 3. Allowed to transfer from involuntary to voluntary status 4. Prior to permitting a person to consent to his or her own treatment after having been previously found incompetent to consent to treatment. History of Present Illness Capacity: Has Capacity HPI Patient is a 88-year-old white male comes here under a [place] act by the [place] [employer] dated 02/18/18 at 10:41 AM. Then chart reviewed essentially says subject got into verbal altercation with his where he is advised he was going to walk until he he was located walking sunshine by [place] [employer] where he advised he wanted to . Patient seen and screened in the ED urine toxicology negative. At the present time patient sitting quietly in his room patient's of 48 years present throughout session also. Patient otherwise states that they have had difficulty with the condominium with a broken pipe leading to perhaps Ag type ordered orders into the house. This had become a problem between them and the condominium board. At the present time patient sitting calmly with his is calm cooperative fairly well oriented for age she does know he is in a hospital in [facility] that it is January. He denies any prior psychiatric contact hospitalization her psychotropic medication. Denies any alcohol or drug use in over 40 years. His verifies that he denies suicidality homicidality voice or visions. Denies any mental illness in the family. 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 He does wish to go home at this time. His verifies the fact that she feels she is safe that he just got somewhat upset with those statements and archuleta that he is okay to go home when she will take responsibility for him. Thus patient will be discharged today with no Rx by me to follow-up with the PCP Review of Systems Constitutional: DENIES: Diaphoretic episodes, Fatigue, Fever, Weight gain, Weight loss, Chills, Dizziness, Change in appetite, Night Sweats Endocrine: DENIES: Heat/cold intolerance, Polydipsia, Polyuria, Polyphagia Eyes: DENIES: Blurred vision, Diplopia, Eye inflammation, Eye pain, Vision loss , Photosensitivity, Double Vision Ears, nose, mouth, throat: DENIES: Tinnitus, Hearing loss, Vertigo, Nasal discharge, Oral lesions, Throat pain, Hoarseness, Ear Pain, Running Nose, Epistaxis, Sinus Pain, Toothache, Odynophagia Respiratory: DENIES: Apneas, Cough, Snoring, Wheezing, Hemoptysis, Sputum production, Shortness of breath Cardiovascular: DENIES: Chest pain, Palpitations, Syncope, Dyspnea on Exertion , PND, Lower Extremity Edema, Orthopnea, Claudication Gastrointestinal: DENIES: Abdominal pain, Black stools, Bloody stools, Constipation, Diarrhea, Nausea, Vomiting, Difficulty Swallowing, Anorexia Musculoskeletal: DENIES: Joint pain, Muscle aches, Stiffness, Joint Swelling, Back pain, Neck pain Integumentary: DENIES: Abnormal pigmentation, Nail changes, Pruritus, Rash Hematologic/lymphatic: DENIES: Bruising, Lymphadenopathy Immunologic/allergic: DENIES: Eczema, Urticaria Neurologic: DENIES: Abnormal gait, Headache, Localized weakness, Paresthesias, Seizures, Speech Problems, Tremor, Poor Balance Psychiatric: COMPLAINS OF: Anxiety, Depression (Mild), Suicidal Ideation (Mild denies) Past Psych History Psychological trauma history Denies Violence risk - others (6 mos) Denies Violence risk - self (6 mos) Denies Substance Abuse History Drugs/Alcohol past 12 months Denies Past Family Social History Coded Allergies: No Known Allergies (Verified Allergy, Unknown, 02/18/18) Active Scripts Pravastatin (Pravachol) 20 Mg Tab, 20 MG PO HS for Cholesterol Management, #30 TAB 0 Refills Prov:Kenneth Ashby MD 03/10/17 Diltiazem CD 24 HR (Cardizem CD 24 HR) 120 Mg Caper, 120 MG PO DAILY for Heart rate control, #30 CAP Prov:Kenneth Ashby MD 03/10/17 Budesonide-Formoterol Inh (Symbicort Inh) 160-4.5 Mcg/Act Aero, 1 PUFF INH Q12HR for COPD, #1 INHALER 0 Refills Prov:Kenneth Ashby MD 03/10/17 Reported Medications Albuterol 8.5 GM Inh (Proair Hfa 8.5 GM Inh) 90 Mcg/Act Aer, 2 PUFF INH Q4-6H Y for SHORTNESS OF BREATH, #1 INHALER 0 Refills 108 mcg/actuation 03/10/17 Benazepril (Benazepril) 5 Mg Tab, 5 MG PO DAILY for Blood Pressure Management, # 30 TAB 0 Refills 03/05/17 Aspirin (Aspirin) 81 Mg Chew, 81 MG CHEW DAILY, TAB 0 Refills 03/05/17 Discontinued Scripts Prednisone (Prednisone) 20 Mg Tab, 10 MG PO DIRECTED for COPD, #21 TAB Take 40mg daily for 3 days; 20mg daily for 3 days; 10mg daily for 3 days, then stop. Prov:Kenneth Ashby MD 03/10/17 Oxygen (O2) (Oxygen (O2)) Device, 2 LITER SHABANA.CANULA CONTINUOUS for Prevent Hypoxemia, #4 CYLINDER Oxygen Concentrator Portable Gaseous 2 L/min via Nasal Canula Continuous For 99 months Prov:Kenneth Ashby MD 03/10/17 Current Medications Medications (Trade) Dose Ordered Sig/Wily Route Start Time Stop Time Status Last Admin (Proair Hfa Inh) 2 puff Q4H PRN INH 02/18/18 21:30 (Aspirin Chew) 81 mg DAILY CHEW 02/19/18 09:00 02/19/18 09:47 (Prinivil) 5 mg DAILY PO 02/19/18 09:00 02/19/18 09:47 (Symbicort 160-4.5 Mcg Inh) 1 puff Q12HR INH 02/19/18 09:00 (Cardizem Cd) 120 mg DAILY PO 02/19/18 09:00 02/19/18 09:46 (Pravachol) 20 mg HS PO 02/19/18 21:00 (Tylenol) 650 mg Q4H PRN PO 02/18/18 21:30 (Milk Of Magnesia Liq) 30 ml DAILY PRN PO 02/18/18 21:30 (Mag-Al Plus Susp Liq) 30 ml Q6H PRN PO 02/18/18 21:30 (Habitrol 21 Mg Patch.24 Hr) 1 patch DAILY PRN T-DERMAL 02/18/18 21:30 Miscellaneous Information 1 DAILY PRN T-DERMAL 02/18/18 22:00 Family Psych History Denies Social History Patient lives with for 48 years they have no children Patient's Strengths (min. 2) Patient verbal able to express himself is supportive Physical Exam Patient medically cleared ED exam reviewed and agreed with patient sitting on the edge of his bed in no acute distress is in no respiratory distress, no complaints of chest pain. No complaints of abdominal pain. Patient moving all 4 extremities without difficulty Vital Signs Vital Signs Date Time Temp Pulse Resp B/P (MAP) Pulse Ox O2 Delivery O2 Flow Rate FiO2 02/19/18 06:08 97.8 80 18 122/68 (86) 93 I/O 02/19/18 02/19/18 02/20/18 08:00 16:00 00:00 Intake Total 600 ml Balance 600 ml Lab Results Test 02/18/18 13:06 02/19/18 05:58 Urine Color YELLOW Urine Turbidity CLEAR Urine pH 6.0 Urine Specific [place] 1.012 Urine Protein NEG mg/dL Urine Glucose (UA) NEG mg/dL Urine Ketones NEG mg/dL Urine Occult Blood MOD Urine Nitrite NEG Urine Bilirubin NEG Urine Urobilinogen LESS THAN 2 mg/dL Urine Leukocyte Esterase NEG Urine RBC 4 /hpf Urine WBC 1 /hpf Urine Bacteria RARE /hpf Urine Mucus FEW /lpf Microscopic Urinalysis Comment CULT NOT INDICATED Urine Opiates Screen NEG Urine Barbiturates Screen NEG Urine Amphetamines Screen NEG Urine Benzodiazepines Screen NEG Urine Cocaine Screen NEG Urine Cannabinoids Screen NEG White Blood Count 9.1 TH/MM3 Red Blood Count 4.54 MIL/MM3 Hemoglobin 13.8 GM/DL Hematocrit 40.3 % Mean Corpuscular Volume 88.8 FL Mean Corpuscular Hemoglobin 30.4 PG Mean Corpuscular Hemoglobin Concent 34.2 % Red Cell Distribution Width 15.4 % Platelet Count 206 TH/MM3 Mean Platelet Volume 7.4 FL Neutrophils (%) (Auto) 64.3 % Lymphocytes (%) (Auto) 22.5 % Monocytes (%) (Auto) 9.4 % Eosinophils (%) (Auto) 3.2 % Basophils (%) (Auto) 0.6 % Neutrophils # (Auto) 5.8 TH/MM3 Lymphocytes # (Auto) 2.0 TH/MM3 Monocytes # (Auto) 0.9 TH/MM3 Eosinophils # (Auto) 0.3 TH/MM3 Basophils # (Auto) 0.1 TH/MM3 CBC Comment DIFF FINAL Differential Comment Blood Urea Nitrogen 16 MG/DL Creatinine 1.06 MG/DL Random Glucose 80 MG/DL Calcium Level 9.0 MG/DL Sodium Level 143 MEQ/L Potassium Level 4.0 MEQ/L Chloride Level 105 MEQ/L Carbon Dioxide Level 29.6 MEQ/L Anion Gap 8 MEQ/L Estimat Glomerular Filtration Rate 66 ML/MIN Triglycerides Level 96 MG/DL Cholesterol Level 149 MG/DL LDL Cholesterol 86 MG/DL HDL Cholesterol 43.4 MG/DL Cholesterol/HDL Ratio 3.43 RATIO Mental Status Examination Appearance: Appropriate Consciousness: Alert Orientation: Person, Place, Date/Time, Situation Motor Activity: Normal gait Speech: Hesitant (Mildly) Language: Adequate Fund of Knowledge: Adequate Attention and Concentration: Adequate Memory: Impaired (Fair) Mood: Other (Euthymic to mildly dysphoric) Affect: Other (Decreased range and intensity) Thought Process & Associations: Disorganized (Mildly) Thought Content: Appropriate Hallucination Type: None Delusion Type: None Suicidal Ideation: No Suicidal Plan: No Suicidal Intention: No Homicidal Ideation: No Homicidal Plan: No Homicidal Intention: No Insight: Poor Judgment: Poor Assessment & Plan Problem List: (1) Adjustment disorder with mixed disturbance of emotions and conduct ICD Codes: F43.25 - Adjustment disorder with mixed disturbance of emotions and conduct Assessment & Plan Estimated LOS: days patient does not meet [place] criteria lift [place] act. Patient to be discharged to his , no Rx by me, follow-up PCP patient denies suicidality homicidality voices or visions Discharge Planning Follow-up PCP Request HC Surrog/Guard Advoc?: No Ramon Resendiz MD Feb 19, 2018 12:13
--- NOTE | 2018-02-19 12:15 | HHI.DS ---
Psychiatry Discharge Summary Inpatient Psychiatric care?: Yes Advance Directive: No Reason Not Provided: DECLINED Mental Health AdvanceDirective: No Health Care Proxy: No Admission Admission Date Feb 18, 2018 at 21:25 Admission Diagnosis: (1) Adjustment disorder with mixed disturbance of emotions and conduct ICD Code: F43.25 - Adjustment disorder with mixed disturbance of emotions and conduct Brief History Patient is a 88-year-old white male comes here under a [place] act by the [place] [employer] dated 02/18/18 at 10:41 AM. Then chart reviewed essentially says subject got into verbal altercation with his where he is advised he was going to walk until he he was located walking sunshine by [place] [employer] where he advised he wanted to . Patient seen and screened in the ED urine toxicology negative. At the present time patient sitting quietly in his room patient's of 48 years present throughout session also. Patient otherwise states that they have had difficulty with the condominium with a broken pipe leading to perhaps Ag type ordered orders into the house. This had become a problem between them and the condominium board. At the present time patient sitting calmly with his is calm cooperative fairly well oriented for age she does know he is in a hospital in [facility] that it is January. He denies any prior psychiatric contact hospitalization her psychotropic medication. Denies any alcohol or drug use in over 40 years. His verifies that he denies suicidality homicidality voice or visions. Denies any mental illness in the family. 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 He does wish to go home at this time. His verifies the fact that she feels she is safe that he just got somewhat upset with those statements and archuleta that he is okay to go home when she will take responsibility for him. Thus patient will be discharged today with no Rx by me to follow-up with the PCP Tobacco Use In Past 30 Days: No Tobacco Past 30 Days Alcohol Use: Never Hospital Course Please see above brief dictation history patient does not meet [place] criteria will lift [place] act patient to be discharged home with his , patient denies suicidality homicidality voice or visions, no Rx by me, follow-up PCP Results Blood Pressure 122 / 68 Vital Signs Date Time Temp Pulse Resp B/P (MAP) Pulse Ox O2 Delivery O2 Flow Rate FiO2 6/28/18 06:08 97.8 80 18 122/68 (86) 93 Laboratory Tests Test 02/18/18 11:27 02/18/18 13:06 02/19/18 05:58 White Blood Count 11.7 TH/MM3 (4.0-11.0) Neutrophils (%) (Auto) 76.8 % (16.0-70.0) Monocytes (%) (Auto) 9.0 % (0.0-8.0) 9.4 % (0.0-8.0) Neutrophils # (Auto) 9.0 TH/MM3 (1.8-7.7) Monocytes # (Auto) 1.1 TH/MM3 (0-0.9) Random Glucose 113 MG/DL (74-106) Estimat Glomerular Filtration Rate 54 ML/MIN (>89) 66 ML/MIN (>89) Urine Occult Blood MOD (NEG) Urine RBC 4 /hpf (0-3) Urine Bacteria RARE /hpf (NONE) Urine Mucus FEW /lpf (OCC) Laboratory Results Test 02/19/18 05:58 Cholesterol Level 149 MG/DL (120-200) HDL Cholesterol 43.4 MG/DL (40.0-60.0) LDL Cholesterol 86 MG/DL (0-99) Triglycerides Level 96 MG/DL (42-150) Summary of Procedures None done Imaging Last Impressions Abdomen/Pelvis CT 02/18/18 0000 Signed Impressions: CONCLUSION: 1. No acute intraperitoneal or pelvic process to explain current clinical symp toms. 2. 3.4 cm infrarenal abdominal aortic aneurysm shows minimal interval growth o lakia the past 7 years. 3. 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 4. 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 2 - Documented plan to taper to monotherapy due to previous use of multiple meds OR cross-taper in progress at D/C. 3 - Documentation of augmentation of Clozapine. 4 - Justification other than those listed in allowable values 1-3, document here : Discharge Discharge Date: Feb 19, 2018 Discharge Diagnosis: (1) Adjustment disorder with mixed disturbance of emotions and conduct Diagnosis: Principal ICD Code: F43.25 - Adjustment disorder with mixed disturbance of emotions and conduct Pt Condition on Discharge: Stable Discharge Disposition: Discharge Home Discharge Instructions Diet Instructions: As Tolerated, No Restrictions Activities you can perform: Regular-No Restrictions Scheduled Appointment: PCP Discharge Time > 30 minutes Mental Status Examination Appearance: Appropriate Consciousness: Alert Orientation: Person, Place, Date/Time, Situation Motor Activity: Normal gait Speech: Hesitant (Mildly) Language: Adequate Fund of Knowledge: Adequate Attention and Concentration: Adequate Memory: Impaired (Fair) Mood: Other (Euthymic to mildly dysphoric) Affect: Other (Decreased range and intensity) Thought Process & Associations: Disorganized (Mildly) Thought Content: Appropriate Hallucination Type: None Delusion Type: None Suicidal Ideation: No Suicidal Plan: No Suicidal Intention: No Homicidal Ideation: No Homicidal Plan: No Homicidal Intention: No Insight: Poor Judgment: Poor Discharge/Advance Care Plan Health Problems: (1) Adjustment disorder with mixed disturbance of emotions and conduct Goals to promote your health * To prevent worsening of your condition and complications * To maintain your health at the optimal level Directions to meet your goals Take your medications as prescribed Follow your dietary instruction Follow activity as directed Keep your appointments as scheduled Take your immunizations and boosters as scheduled If your symptoms worsen call your PCP, if no PCP go to Urgent Care Center or Emergency Room For 17/03 questions related to your inpatient stay or results of tests pending at discharge, please contact Dr. Ramon Resendiz at Smoking is Dangerous to Your Health. Avoid second hand smoking Ramon Resendiz MD Feb 19, 2018 12:15
[2018-02-19 13:38] LABS: HEMOGLOBIN A1C 5.1 % (4.3-6.0)
[2018-02-19] MEDS ORDERED: PRAVASTATIN SOD 20 MG TAB PO SCH (21:00)
== END 2018-02-19 14:30 | disposition home or self-care (01) | DRG 882 ==
LOC: NEPD 11:06 → NEDA 21:25 → H250 23:50
PROVIDERS: ADMIT Psychiatry & Neurology Psychiatry; ATTEND Psychiatry & Neurology Psychiatry
DX: F43.25 Adjustment disorder with mixed disturbance of emotions and conduct (principal); J44.9 Chronic obstructive pulmonary disease, unspecified; E11.9 Type 2 diabetes mellitus without complications; I71.4 Abdominal aortic aneurysm, without rupture; I10 Essential (primary) hypertension; F41.9 Anxiety disorder, unspecified
CPT/HCPCS: 74176; 80048; 80053; 80061; 80307; 81001; 83036; 83690; 84443; 85025; J1630; J2060